=== PATIENT | male | born 1950 | race Two or more races ===

== ENCOUNTER 2019-06-21 22:54 | Inpatient (IN) | payer MEDICARE, OTHER ==
[~2019-06-21] VITALS: Ht 167.6 cm; Wt 94.8 kg
[2019-06-21] MEDS ORDERED: METHYLPREDNISOLONE SOD SUCC 125 MG/2 ML VIAL IV STA (23:04)
[2019-06-21] MEDS ORDERED: ALBUTEROL (0.083%) 2.5MG/3ML NEB HHN STA (23:04)
[2019-06-21] MEDS ORDERED: ONDANSETRON HCL 4MG/2ML INJ IV STA (23:04)
[2019-06-21] MEDS ORDERED: IPRATROPIUM BROMIDE (0.02%) 0.5MG/2.5ML NEB HHN STA (23:04)
[2019-06-21 23:33] LABS: BG BASE EXCESS 1.7 mmol/L (-2.0-2.0); BG BILEVEL POS AIRWAY PRESSURE 15/5; BG CARBOXYHEMOGLOBIN 0.4 % (0.5-1.5); BG DEOXYHEMOGLOBIN 1.2 % (0.0-5.0); BG FRACTION INSPIRED OXYGEN 50; BG HCO3 ACT 25.7 mmol/L (22.0-26.0); BG METHEMOGLOBIN 0.4 % (0.0-1.5); BG OXYGEN SATURATION 98.8 % (92.0-98.5); BG PH 7.448 (7.350-7.450); BG PO2 161.3 mmHg (75.0-100.0); BG SAMPLE SITE LEFT RADIAL; BG VENT MODE MASK - BIPAP; BG VENT RATE 16 set
[2019-06-21 23:35] LABS: HEMATOCRIT. 32.4 % (42.0-52.0); HEMOGLOBIN. 10.5 g/dL (14.0-18.0); MEAN CORPUSCULAR HEMOGLOBIN 30.4 pg (28.0-32.0); MEAN CORPUSCULAR VOLUME 93.7 fL (80.0-94.0); MEAN PLATELET VOLUME 8.3 fl (7.4-10.4); PLATELET 214 x1000/uL (130-400); RED BLOOD CELL COUNT 3.46 mill/uL (4.7-6.1); RED CELL DISTRIBUTION WIDTH 15.7 % (11.6-14.6)
[2019-06-21 23:44] LABS: CHLORIDE 112 mEq/L (98-107)
[2019-06-22] VITALS (9 sets, daily range): BP systolic 114–146; BP diastolic 32–94
[2019-06-22 03:48] LABS: PLATELET ESTIMATE NORMAL
[2019-06-22] MEDS ORDERED: IPRATROPIUM/ALBUTEROL 0.5-3(2.5)MG/3ML NEB HHN PRN (05:15)
[2019-06-22] MEDS ORDERED: POTASSIUM CHLORIDE 20MEQ TABLET SR PO SCH (05:33)
[2019-06-22] MEDS: METHYLPREDNISOLONE SOD SUCC 40 MG/ML VIAL IV SCH ×2 (06:28→13:47)
[2019-06-22] MEDS: PANTOPRAZOLE 40MG DR TABLET PO SCH (06:29)
[2019-06-22] MEDS ORDERED: MONT10TA21 PO (08:20)
[2019-06-22] MEDS: ENOXAPARIN 40MG/0.4ML SYR SUBCUT SCH (08:38)
[2019-06-22 09:47] LABS: HEMATOCRIT. 33.7 % (42.0-52.0); HEMOGLOBIN. 10.8 g/dL (14.0-18.0); MEAN CORPUSCULAR HEMOGLOBIN 30.3 pg (28.0-32.0); MEAN CORPUSCULAR VOLUME 94.8 fL (80.0-94.0); MEAN PLATELET VOLUME 8.9 fl (7.4-10.4); PLATELET 210 x1000/uL (130-400); RED BLOOD CELL COUNT 3.56 mill/uL (4.7-6.1); RED CELL DISTRIBUTION WIDTH 15.8 % (11.6-14.6)
[2019-06-22 10:03] LABS: CHLORIDE 108 mEq/L (98-107)
[2019-06-22 10:11] LABS: LDL CHOLESTEROL 84 mg/dL (5-100)
[2019-06-22 10:12] LABS: HDL CHOLESTEROL 41 mg/dL (40-59)
[2019-06-22] MEDS: LOSARTAN POTASSIUM 50 MG TABLET PO SCH (10:28)
[2019-06-22] MEDS: POTASSIUM CHLORIDE 20MEQ TABLET SR PO SCH (10:28)
[2019-06-22] MEDS ORDERED: CARSR60 PO (12:38)
[2019-06-22] MEDS ORDERED: ATOR-2 MT (12:38)
[2019-06-22] MEDS ORDERED: MOME13HF INH (12:38)
[2019-06-22] MEDS ORDERED: METO-411 PO (12:38)
[2019-06-22] MEDS ORDERED: HYDR-4135 MT (12:38)
[2019-06-22] MEDS ORDERED: APIX5TAB MT (12:38)
[2019-06-22] MEDS ORDERED: ISOS10TA2 MT (12:38)
[2019-06-22] MEDS ORDERED: TIOT18CA3 INH (12:38)
[2019-06-22] MEDS ORDERED: FURO40TA5 MT (12:38)
[2019-06-22 12:53] LABS: TOTAL IRON BINDING CAPACITY 180 ug/dL (250-450)
[2019-06-22 14:03] LABS: PLATELET ESTIMATE NORMAL
[2019-06-22] MEDS: FUROSEMIDE 40MG/4ML VIAL IVP SCH (17:09)
[2019-06-22] MEDS ORDERED: INSULIN LISPRO 100 UNITS/ML SUBCUT SCH (17:20)
[2019-06-22] MEDS: BLOOD SUGAR DIAGNOSTIC STRIP TEST SCH ×2 (17:30→21:05)
[2019-06-22] MEDS: INSULIN LISPRO 100 UNITS/ML SUBCUT SCH ×2 (17:30→20:59)
[2019-06-22] MEDS ORDERED: DEXTROSE 50% WATER 50ML SYRINGE IV PRN (17:30)
[2019-06-22] MEDS: IPRATROPIUM/ALBUTEROL 0.5-3(2.5)MG/3ML NEB HHN SCH (20:12)
[2019-06-22] MEDS: BUDESONIDE 0.5MG/2ML NEB HHN SCH (20:12)
[2019-06-22] MEDS: AMLODIPINE 5MG TABLET PO SCH (20:53)
[2019-06-23] VITALS (12 sets, daily range): BP systolic 91–172; BP diastolic 59–97
[2019-06-23] MEDS: IPRATROPIUM/ALBUTEROL 0.5-3(2.5)MG/3ML NEB HHN SCH ×2 (02:11→10:40)
[2019-06-23 06:38] LABS: CLARITY URINE CLEAR (CLEAR); COLOR URINE YELLOW (YELLOW); KETONES URINE TRACE (NEGATIVE); LEUKOCYTE ESTERASE URINE NEGATIVE (NEGATIVE); NITRITE URINE NEGATIVE (NEGATIVE); OCCULT BLOOD URINE NEGATIVE (NEGATIVE); PROTEIN URINE TRACE (NEGATIVE); SPECIFIC GRAVITY URINE 1.016 (1.005-1.030); UROBILINOGEN URINE 0.2 E.U./dL (0.2-1.0)
[2019-06-23] MEDS: PANTOPRAZOLE 40MG DR TABLET PO SCH (06:52)
[2019-06-23] MEDS: BLOOD SUGAR DIAGNOSTIC STRIP TEST SCH ×4 (06:57→20:16)
[2019-06-23 07:01] LABS: *BENZODIAZEPINES SCREEN URINE NEGATIVE (NEGATIVE); *COCAINE SCREEN URINE NEGATIVE (NEGATIVE); CANNABINOID URINE SCREEN NEGATIVE (NEGATIVE); METHADONE URINE SCREEN NEGATIVE (NEGATIVE); OPIATES URINE SCREEN NEGATIVE (NEGATIVE); PHENCYCLIDINE URINE SCREEN NEGATIVE (NEGATIVE)
[2019-06-23 07:03] LABS: *AMPHETAMINES SCREEN URINE NEGATIVE (NEGATIVE); *BARBITURATES SCREEN URINE NEGATIVE (NEGATIVE)
[2019-06-23] MEDS ORDERED: DILTIAZEM HCL 5MG/ML 5ML VIAL IV NR ×2 (07:30→13:45)
[2019-06-23] MEDS: INSULIN LISPRO 100 UNITS/ML SUBCUT SCH ×4 (07:48→20:42)
[2019-06-23] MEDS: FUROSEMIDE 40MG/4ML VIAL IVP SCH ×2 (07:53→15:18)
[2019-06-23] MEDS ORDERED: DILTIAZEM HCL 125 MG in DEXT 5% WATER 100 ML IV SCH (08:00)
[2019-06-23] MEDS: AMLODIPINE 5MG TABLET PO SCH (08:31)
[2019-06-23] MEDS: LOSARTAN POTASSIUM 50 MG TABLET PO SCH (08:31)
[2019-06-23] MEDS: PREDNISONE 20MG TABLET PO SCH ×2 (08:31→17:41)
[2019-06-23] MEDS: POTASSIUM CHLORIDE 20MEQ TABLET SR PO SCH (08:31)
[2019-06-23] MEDS: ENOXAPARIN 40MG/0.4ML SYR SUBCUT SCH (08:32)
[2019-06-23] MEDS: BUDESONIDE 0.5MG/2ML NEB HHN SCH ×2 (10:39→20:36)
[2019-06-23] MEDS: DILTIAZEM HCL 60MG TABLET PO SCH ×2 (15:20→22:08)
[2019-06-23] MEDS: DILTIAZEM HCL 125 MG in DEXT 5% WATER 100 ML IV SCH ×2 (15:27→22:50)
[2019-06-23] MEDS: IPRATROPIUM BROMIDE (0.02%) 0.5MG/2.5ML NEB HHN SCH ×2 (16:10→20:36)
[2019-06-23] MEDS: DIGOXIN 500MCG/2ML AMP IV SCH (17:40)
[2019-06-23] MEDS: APIXABAN 5 MG TABLET PO SCH (17:41)
[2019-06-24] VITALS (12 sets, daily range): BP systolic 107–149; BP diastolic 58–97
[2019-06-24] MEDS: IPRATROPIUM BROMIDE (0.02%) 0.5MG/2.5ML NEB HHN SCH ×3 (01:47→20:47)
[2019-06-24] MEDS: BLOOD SUGAR DIAGNOSTIC STRIP TEST SCH ×4 (06:16→21:52)
[2019-06-24] MEDS: PANTOPRAZOLE 40MG DR TABLET PO SCH (06:17)
[2019-06-24] MEDS: DILTIAZEM HCL 60MG TABLET PO SCH (06:17)
[2019-06-24 07:28] LABS: HEMATOCRIT. 33.5 % (42.0-52.0); HEMOGLOBIN. 10.6 g/dL (14.0-18.0); MEAN CORPUSCULAR HEMOGLOBIN 30.4 pg (28.0-32.0); MEAN CORPUSCULAR VOLUME 96.1 fL (80.0-94.0); MEAN PLATELET VOLUME 9.6 fl (7.4-10.4); PLATELET 235 x1000/uL (130-400); RED BLOOD CELL COUNT 3.49 mill/uL (4.7-6.1); RED CELL DISTRIBUTION WIDTH 15.7 % (11.6-14.6)
[2019-06-24] MEDS: INSULIN LISPRO 100 UNITS/ML SUBCUT SCH ×4 (07:43→21:59)
[2019-06-24] MEDS: LOSARTAN POTASSIUM 50 MG TABLET PO SCH (08:25)
[2019-06-24] MEDS: PREDNISONE 20MG TABLET PO SCH ×2 (08:26→16:40)
[2019-06-24] MEDS: POTASSIUM CHLORIDE 20MEQ TABLET SR PO SCH (08:26)
[2019-06-24] MEDS: APIXABAN 5 MG TABLET PO SCH ×2 (08:26→16:40)
[2019-06-24] MEDS: FUROSEMIDE 40MG/4ML VIAL IVP SCH (08:27)
[2019-06-24] MEDS: BUDESONIDE 0.5MG/2ML NEB HHN SCH ×2 (10:10→20:47)
[2019-06-24] MEDS: DILTIAZEM HCL 90MG TABLET PO SCH ×2 (13:25→21:52)
[2019-06-24 14:21] LABS: PLATELET ESTIMATE NORMAL
[2019-06-24] MEDS: DIGOXIN 500MCG/2ML AMP IV SCH (19:05)
[2019-06-25] VITALS (10 sets, daily range): BP systolic 125–147; BP diastolic 48–94
[2019-06-25] MEDS: IPRATROPIUM BROMIDE (0.02%) 0.5MG/2.5ML NEB HHN SCH ×3 (00:31→14:15)
[2019-06-25] MEDS: DILTIAZEM HCL 90MG TABLET PO SCH ×2 (06:23→13:11)
[2019-06-25] MEDS: BLOOD SUGAR DIAGNOSTIC STRIP TEST SCH ×2 (06:23→12:18)
[2019-06-25] MEDS: PANTOPRAZOLE 40MG DR TABLET PO SCH (06:23)
[2019-06-25] MEDS: INSULIN LISPRO 100 UNITS/ML SUBCUT SCH ×2 (06:30→13:14)
[2019-06-25] MEDS: LOSARTAN POTASSIUM 50 MG TABLET PO SCH (08:40)
[2019-06-25] MEDS: APIXABAN 5 MG TABLET PO SCH (08:41)
[2019-06-25] MEDS: PREDNISONE 20MG TABLET PO SCH (08:41)
[2019-06-25 09:56] LABS: HEMATOCRIT. 34.9 % (42.0-52.0); HEMOGLOBIN. 11.1 g/dL (14.0-18.0); MEAN CORPUSCULAR HEMOGLOBIN 30.3 pg (28.0-32.0); MEAN CORPUSCULAR VOLUME 95.5 fL (80.0-94.0); MEAN PLATELET VOLUME 9.5 fl (7.4-10.4); PLATELET 263 x1000/uL (130-400); RED BLOOD CELL COUNT 3.65 mill/uL (4.7-6.1); RED CELL DISTRIBUTION WIDTH 15.5 % (11.6-14.6)
[2019-06-25] MEDS: BUDESONIDE 0.5MG/2ML NEB HHN SCH (10:53)
[2019-06-25] MEDS ORDERED: P20 PO (13:42)
[2019-06-25] MEDS ORDERED: LOSA50TA3 PO (13:42)
[2019-06-25] MEDS ORDERED: APIX5TAB PO (13:42)
[2019-06-25] MEDS ORDERED: DILT90TA2 PO (13:42)
[2019-06-25] MEDS ORDERED: PANT40TA4 PO (13:42)
[2019-06-25 18:25] LABS: PLATELET ESTIMATE NORMAL
== END 2019-06-25 17:50 | disposition home or self-care (01) | DRG 291 ==
LOC: ER 22:54 → 3WST 06-22 00:26 → EDBEDREQSVC 06-22 00:31 → EDBEDREQTM 06-22 00:31 → EDBEDREQDT 06-22 00:31 → EDBEDREQ 06-22 00:31 → ENRESERV 06-22 01:09
PROVIDERS: ADMIT Internal Medicine; ATTEND Internal Medicine
PROC: 5A09357 Assistance with Respiratory Ventilation, Less than 24 Consecutive Hours, Continuous Positive Airway Pressure (ICD-10-PCS; principal; 2019-06-21)
DX: I13.0 Hypertensive heart and chronic kidney disease with heart failure and stage 1 through stage 4 chronic kidney disease, or unspecified chronic kidney disease (principal); J96.00 Acute respiratory failure, unspecified whether with hypoxia or hypercapnia; I50.23 Acute on chronic systolic (congestive) heart failure; N17.9 Acute kidney failure, unspecified; J44.1 Chronic obstructive pulmonary disease with (acute) exacerbation; D72.821 Monocytosis (symptomatic); E11.65 Type 2 diabetes mellitus with hyperglycemia; E87.6 Hypokalemia; E11.22 Type 2 diabetes mellitus with diabetic chronic kidney disease; D64.9 Anemia, unspecified; R80.9 Proteinuria, unspecified; R74.0 Nonspecific elevation of levels of transaminase and lactic acid dehydrogenase [LDH]; I48.0 Paroxysmal atrial fibrillation; N18.9 Chronic kidney disease, unspecified; Z79.01 Long term (current) use of anticoagulants; Z79.51 Long term (current) use of inhaled steroids; Z79.84 Long term (current) use of oral hypoglycemic drugs; Z87.891 Personal history of nicotine dependence; Z88.5 Allergy status to narcotic agent; Z91.013 Allergy to seafood; Z79.899 Other long term (current) drug therapy
CPT/HCPCS: 36415; 36600; 71045; 76770; 80048; 80061; 80305; 81003; 82375; 82805; 82947; 82962; 83036; 83540; 83550; 83605; 83735; 83880; 84145; 84443; 84484; 93005; 93306; 93970; 94640; 94660; 99291; J1160; J1650; J1815; J1940; J2405; J2920; J2930; J3490; J7060; J7512; J7611; J7620; J7626

== ENCOUNTER 2019-07-31 10:22 | Inpatient (IN) | payer MEDICARE ==
[~2019-07-31] VITALS: Ht 167.6 cm; Wt 91.6 kg
[~2019-07-31 10:22] MED LIST: APIX5TAB MT; APIX5TAB PO; ASPI-1393 MT; ATOR-2 MT; CARV25TA47 MT; DILT90TA2 PO; FURO40TA5 MT; HYDR-4135 MT; ISOS5TAB4 MT; LOSA50TA3 PO; MOME13HF INH; MONT10TA21 PO; P20 PO; PANT40TA4 PO; TIOT18CA3 INH
[2019-07-31] MEDS ORDERED: DILTIAZEM HCL 125 MG in DEXT 5% WATER 100 ML IV ONE (11:45)
[2019-07-31] MEDS ORDERED: DILTIAZEM HCL 5MG/ML 5ML VIAL IV ONE (11:45)
[2019-07-31 11:57] LABS: CHLORIDE 109 mEq/L (98-107)
[2019-07-31 11:59] LABS: BASOPHILS % 0.6 % (0.0-2.0); HEMATOCRIT. 36.3 % (42.0-52.0); HEMOGLOBIN. 11.7 g/dL (14.0-18.0); MEAN CORPUSCULAR HEMOGLOBIN 30.8 pg (28.0-32.0); MEAN CORPUSCULAR VOLUME 95.7 fL (80.0-94.0); MEAN PLATELET VOLUME 9.4 fl (7.4-10.4); MONOCYTES % 9.5 % (2.0-8.0); NEUTROPHILS % 76.9 % (40.0-76.0); PLATELET 306 x1000/uL (130-400); RED BLOOD CELL COUNT 3.79 mill/uL (4.7-6.1); RED CELL DISTRIBUTION WIDTH 17.1 % (11.6-14.6)
[2019-07-31] MEDS ORDERED: ASPIRIN 81MG TABLET PO ONE (13:30)
[2019-07-31] MEDS ORDERED: IPRATROPIUM BROMIDE (0.02%) 0.5MG/2.5ML NEB HHN SCH (14:00)
[2019-07-31] MEDS ORDERED: DEXTROSE 50% WATER 50ML SYRINGE IV PRN (14:00)
[2019-07-31] MEDS ORDERED: ONDANSETRON HCL 4MG/2ML INJ IV PRN ×2 (14:00→19:30)
[2019-07-31] MEDS ORDERED: BUDESONIDE 0.5MG/2ML NEB HHN SCH (14:00)
[2019-07-31] MEDS ORDERED: FUROSEMIDE 40MG/4ML VIAL IVP SCH (14:00)
[2019-07-31] MEDS ORDERED: BLOOD SUGAR DIAGNOSTIC STRIP TEST SCH (17:00)
[2019-07-31 18:00] VITALS: BP 151/111
[2019-07-31] MEDS ORDERED: INSULIN LISPRO 100 UNITS/ML SUBCUT SCH (18:20)
[2019-07-31 18:41] VITALS: BP 151/111
[2019-07-31] MEDS ORDERED: LORAZEPAM 2MG/ML CPJ IV PRN (19:30)
[2019-07-31] MEDS ORDERED: CLONIDINE 0.1MG TABLET PO PRN (19:30)
[2019-07-31] MEDS ORDERED: MORPHINE SULFATE 2 MG/ML CPJ (NOT FOR IM USE) IV PRN (19:30)
[2019-07-31] MEDS ORDERED: HYDROCODONE/ACETAMINOPHEN 5/325MG TABLET PO PRN (19:30)
[2019-07-31] MEDS ORDERED: ENOXAPARIN 40MG/0.4ML SYR SUBCUT SCH (19:30)
[2019-07-31 20:00] VITALS: BP 169/99
[2019-07-31] MEDS: INSULIN LISPRO 100 UNITS/ML SUBCUT SCH (21:00)
[2019-07-31] MEDS: FUROSEMIDE 40MG/4ML VIAL IVP SCH (21:02)
[2019-07-31] MEDS: APIXABAN 5 MG TABLET PO SCH (21:02)
[2019-07-31] MEDS: GUAIFENESIN 600MG ER TABLET PO SCH (21:03)
[2019-07-31] MEDS: BLOOD SUGAR DIAGNOSTIC STRIP TEST SCH (21:35)
[2019-07-31] MEDS: CLONIDINE 0.1MG TABLET PO PRN (21:43)
[2019-07-31 22:00] VITALS: BP 149/96
[2019-08-01] VITALS (22 sets, daily range): BP systolic 134–175; BP diastolic 77–113
[2019-08-01] MEDS: DILTIAZEM HCL 90MG TABLET PO SCH ×4 (00:17→18:28)
[2019-08-01 00:34] LABS: CREATINE KINASE MB FRACTION 3.4 ng/mL (0.5-3.6)
[2019-08-01] MEDS: IPRATROPIUM BROMIDE (0.02%) 0.5MG/2.5ML NEB HHN SCH ×5 (04:51→21:37)
[2019-08-01] MEDS: BLOOD SUGAR DIAGNOSTIC STRIP TEST SCH ×4 (06:46→21:52)
[2019-08-01] MEDS: INSULIN LISPRO 100 UNITS/ML SUBCUT SCH ×4 (07:20→21:00)
[2019-08-01] MEDS: APIXABAN 5 MG TABLET PO SCH ×2 (07:48→17:17)
[2019-08-01] MEDS: FUROSEMIDE 40MG/4ML VIAL IVP SCH (07:48)
[2019-08-01] MEDS: FOLIC ACID 1MG TABLET PO SCH (07:48)
[2019-08-01] MEDS: ASPIRIN 81MG EC TABLET PO SCH (07:48)
[2019-08-01 07:49] LABS: BASOPHILS % 0.4 % (0.0-2.0); EOSINOPHILS % 0.6 % (0.0-5.0); HEMATOCRIT. 39.7 % (42.0-52.0); HEMOGLOBIN. 12.5 g/dL (14.0-18.0); LYMPHOCYTES % 14.5 % (20.0-50.0); MEAN CORPUSCULAR HEMOGLOBIN 30.1 pg (28.0-32.0); MEAN CORPUSCULAR VOLUME 95.6 fL (80.0-94.0); MEAN PLATELET VOLUME 9.3 fl (7.4-10.4); MONOCYTES % 10.9 % (2.0-8.0); NEUTROPHILS % 73.6 % (40.0-76.0); PLATELET 280 x1000/uL (130-400); RED BLOOD CELL COUNT 4.15 mill/uL (4.7-6.1); RED CELL DISTRIBUTION WIDTH 16.9 % (11.6-14.6)
[2019-08-01] MEDS: GUAIFENESIN 600MG ER TABLET PO SCH ×2 (07:49→21:25)
[2019-08-01] MEDS: ACETAMINOPHEN 325MG TABLET PO PRN ×2 (07:49→17:17)
[2019-08-01 08:41] LABS: CHLORIDE 107 mEq/L (98-107)
[2019-08-01] MEDS: BUDESONIDE 0.5MG/2ML NEB HHN SCH ×2 (08:47→21:37)
[2019-08-01 08:51] LABS: CREATINE KINASE 112 IU/L (39-308)
[2019-08-01 08:53] LABS: CREATINE KINASE MB FRACTION 3.1 ng/mL (0.5-3.6)
[2019-08-01] MEDS: CLONIDINE 0.1MG TABLET PO PRN ×2 (09:23→17:17)
[2019-08-01] MEDS: LOSARTAN POTASSIUM 100 MG TABLET PO SCH (11:55)
[2019-08-01] MEDS: COLCHICINE 0.6MG TABLET PO SCH (11:55)
[2019-08-01] MEDS: TRAMADOL 50MG TABLET PO PRN (17:24)
[2019-08-02] VITALS (9 sets, daily range): BP systolic 145–176; BP diastolic 60–113
[2019-08-02] MEDS: DILTIAZEM HCL 90MG TABLET PO SCH ×3 (00:17→12:27)
[2019-08-02] MEDS: IPRATROPIUM BROMIDE (0.02%) 0.5MG/2.5ML NEB HHN SCH ×5 (01:00→16:00)
[2019-08-02] MEDS: BLOOD SUGAR DIAGNOSTIC STRIP TEST SCH ×2 (06:51→12:20)
[2019-08-02 07:14] LABS: HEMATOCRIT. 34.6 % (42.0-52.0); HEMOGLOBIN. 11.1 g/dL (14.0-18.0); MEAN CORPUSCULAR HEMOGLOBIN 30.3 pg (28.0-32.0); MEAN CORPUSCULAR VOLUME 94.5 fL (80.0-94.0); MEAN PLATELET VOLUME 9.7 fl (7.4-10.4); PLATELET 226 x1000/uL (130-400); RED BLOOD CELL COUNT 3.66 mill/uL (4.7-6.1); RED CELL DISTRIBUTION WIDTH 17.1 % (11.6-14.6)
[2019-08-02] MEDS: INSULIN LISPRO 100 UNITS/ML SUBCUT SCH ×2 (07:20→12:20)
[2019-08-02 07:50] LABS: CHLORIDE 105 mEq/L (98-107)
[2019-08-02] MEDS: BUDESONIDE 0.5MG/2ML NEB HHN SCH (08:28)
[2019-08-02] MEDS: LOSARTAN POTASSIUM 100 MG TABLET PO SCH (09:07)
[2019-08-02] MEDS: ASPIRIN 81MG EC TABLET PO SCH (09:07)
[2019-08-02] MEDS: FOLIC ACID 1MG TABLET PO SCH (09:07)
[2019-08-02] MEDS: GUAIFENESIN 600MG ER TABLET PO SCH (09:07)
[2019-08-02] MEDS: APIXABAN 5 MG TABLET PO SCH (09:07)
[2019-08-02] MEDS: FUROSEMIDE 40MG/4ML VIAL IVP SCH (09:08)
[2019-08-02] MEDS: COLCHICINE 0.6MG TABLET PO SCH (09:08)
[2019-08-02 11:04] LABS: PLATELET ESTIMATE NORMAL
[2019-08-02] MEDS: TRAMADOL 50MG TABLET PO PRN (12:27)
[2019-08-02] MEDS: CLONIDINE 0.1MG TABLET PO PRN (12:27)
== END 2019-08-02 18:44 | disposition home or self-care (01) | DRG 291 ==
LOC: ER 10:22 → 3WST 13:42 → ENRESERV 16:04 → CANRESERV 16:04 → EDBEDREQSVC 16:22 → CANRESERV 16:23 → ENRESERV 16:23
PROVIDERS: ADMIT Internal Medicine Nephrology; ATTEND Internal Medicine Nephrology
DX: I13.0 Hypertensive heart and chronic kidney disease with heart failure and stage 1 through stage 4 chronic kidney disease, or unspecified chronic kidney disease (principal); E43 Unspecified severe protein-calorie malnutrition; I50.23 Acute on chronic systolic (congestive) heart failure; J96.20 Acute and chronic respiratory failure, unspecified whether with hypoxia or hypercapnia; E87.0 Hyperosmolality and hypernatremia; I48.20 Chronic atrial fibrillation, unspecified; E11.22 Type 2 diabetes mellitus with diabetic chronic kidney disease; N18.9 Chronic kidney disease, unspecified; D64.9 Anemia, unspecified; E11.9 Type 2 diabetes mellitus without complications; E66.9 Obesity, unspecified; E78.00 Pure hypercholesterolemia, unspecified; E78.5 Hyperlipidemia, unspecified; E87.8 Other disorders of electrolyte and fluid balance, not elsewhere classified; J44.9 Chronic obstructive pulmonary disease, unspecified; M10.9 Gout, unspecified; Z79.01 Long term (current) use of anticoagulants; Z99.81 Dependence on supplemental oxygen; Z68.32 Body mass index [BMI] 32.0-32.9, adult; Z88.6 Allergy status to analgesic agent; Z91.013 Allergy to seafood; Z79.82 Long term (current) use of aspirin; Z79.899 Other long term (current) drug therapy; Z71.3 Dietary counseling and surveillance
CPT/HCPCS: 36415; 71045; 80048; 82550; 82553; 82962; 83880; 84484; 84550; 93005; 94640; 99285; J1815; J1940; J3490; J7060; J7626

== ENCOUNTER 2019-09-30 10:05 | Inpatient (IN) | payer MEDICARE, OTHER ==
[~2019-09-30] VITALS: Ht 167.6 cm; Wt 93.0 kg
[~2019-09-30 10:05] MED LIST changes: -APIX5TAB MT; -ASPI-1393 MT; +ASPI-1497 MT; -P20 PO
[2019-09-30] MEDS ORDERED: DILTIAZEM HCL 125 MG in DEXT 5% WATER 100 ML IV ONE ×2 (10:45→21:30)
[2019-09-30] MEDS ORDERED: DILTIAZEM HCL 5MG/ML 5ML VIAL IV ONE (10:45)
[2019-09-30 11:30] LABS: BASOPHILS % 0.4 % (0.0-2.0); EOSINOPHILS % 3.2 % (0.0-5.0); HEMATOCRIT. 34.3 % (42.0-52.0); HEMOGLOBIN. 11.2 g/dL (14.0-18.0); LYMPHOCYTES % 13.1 % (20.0-50.0); MEAN CORPUSCULAR HEMOGLOBIN 30.8 pg (28.0-32.0); MEAN PLATELET VOLUME 8.3 fl (7.4-10.4); MONOCYTES % 7.1 % (2.0-8.0); NEUTROPHILS % 76.2 % (40.0-76.0); PLATELET 388 x1000/uL (130-400); RED BLOOD CELL COUNT 3.65 mill/uL (4.7-6.1); RED CELL DISTRIBUTION WIDTH 16.2 % (11.6-14.6)
[2019-09-30 11:36] LABS: CHLORIDE 108 mEq/L (98-107)
[2019-09-30] MEDS ORDERED: SODIUM CHLORIDE 0.9% 500 ML IV ONE (11:45)
[2019-09-30] MEDS ORDERED: IPRATROPIUM BROMIDE (0.02%) 0.5MG/2.5ML NEB HHN STA (12:01)
[2019-09-30] MEDS ORDERED: ALBUTEROL (0.083%) 2.5MG/3ML NEB HHN STA (12:01)
[2019-09-30] MEDS ORDERED: METOPROLOL TARTRATE 25MG TABLET PO NR (16:05)
[2019-09-30] MEDS ORDERED: APIXABAN 2.5 MG TABLET PO NR (16:07)
[2019-09-30] MEDS ORDERED: POTASSIUM CHLORIDE INJ 40 MEQ in DEXT 5% WATER 250 ML IV NR (16:30)
[2019-09-30] MEDS ORDERED: DIPHENHYDRAMINE 50MG/ML VIAL IV PRN (17:15)
[2019-09-30] MEDS ORDERED: NA PHOS,M-B/NA PHOS,DI-BA ENEMA 118ML PR PRN (17:15)
[2019-09-30] MEDS ORDERED: ONDANSETRON HCL 4MG/2ML INJ IV PRN (17:15)
[2019-09-30] MEDS ORDERED: DOCUSATE SODIUM 100MG CAPSULE PO PRN (17:15)
[2019-09-30] MEDS ORDERED: MORPHINE SULFATE 2 MG/ML CPJ (NOT FOR IM USE) IV PRN (17:15)
[2019-09-30] MEDS ORDERED: MAGNESIUM/ALUMINUM HYDROXIDE/SIMETHICONE 30ML UDC PO PRN (17:15)
[2019-09-30] MEDS ORDERED: GUAIFENESIN 200MG/10ML SUGAR FREE UDC PO PRN (17:15)
[2019-09-30] MEDS ORDERED: ENOXAPARIN 40MG/0.4ML SYR SUBCUT SCH (17:15)
[2019-09-30] MEDS ORDERED: LORAZEPAM 2MG/ML CPJ IV PRN (17:15)
[2019-09-30] MEDS ORDERED: DILTIAZEM HCL 125 MG in DEXT 5% WATER 100 ML IV NR (21:45)
[2019-10-01 03:44] LABS: BASOPHILS % 0.3 % (0.0-2.0); EOSINOPHILS % 3.4 % (0.0-5.0); HEMOGLOBIN. 9.8 g/dL (14.0-18.0); LYMPHOCYTES % 14.2 % (20.0-50.0); MEAN CORPUSCULAR HEMOGLOBIN 30.9 pg (28.0-32.0); MEAN CORPUSCULAR VOLUME 94.5 fL (80.0-94.0); MEAN PLATELET VOLUME 7.6 fl (7.4-10.4); NEUTROPHILS % 71.1 % (40.0-76.0); PLATELET 334 x1000/uL (130-400); RED BLOOD CELL COUNT 3.17 mill/uL (4.7-6.1); RED CELL DISTRIBUTION WIDTH 16.3 % (11.6-14.6)
[2019-10-01 03:52] LABS: CHLORIDE 111 mEq/L (98-107)
[2019-10-01 03:59] LABS: LDL CHOLESTEROL 80 mg/dL (5-100)
[2019-10-01 04:00] LABS: HDL CHOLESTEROL 41 mg/dL (40-59)
[2019-10-01 04:01] LABS: T4 FREE 1.09 ng/dL (0.76-1.46)
[2019-10-01] MEDS: ACETAMINOPHEN 325MG TABLET PO PRN (06:56)
[2019-10-01 08:12] LABS: CREATINE KINASE 71 IU/L (39-308)
[2019-10-01] MEDS ORDERED: APIXABAN 2.5 MG TABLET PO NR (09:30)
[2019-10-01] MEDS ORDERED: FUROSEMIDE 40MG/4ML VIAL IV NR (09:30)
[2019-10-01] MEDS ORDERED: ASPIRIN 81MG EC TABLET PO NR (09:30)
[2019-10-01] MEDS: METOPROLOL TARTRATE 25MG TABLET PO SCH ×2 (11:26→20:35)
[2019-10-01 11:56] VITALS: BP 151/81
[2019-10-01 16:26] VITALS: BP 158/86
[2019-10-01] MEDS: APIXABAN 2.5 MG TABLET PO SCH (17:29)
[2019-10-01 18:19] LABS: CLARITY URINE CLEAR (CLEAR); COLOR URINE YELLOW (YELLOW); KETONES URINE NEGATIVE (NEGATIVE); LEUKOCYTE ESTERASE URINE NEGATIVE (NEGATIVE); NITRITE URINE NEGATIVE (NEGATIVE); OCCULT BLOOD URINE NEGATIVE (NEGATIVE); PROTEIN URINE NEGATIVE (NEGATIVE); SPECIFIC GRAVITY URINE 1.008 (1.005-1.030); UROBILINOGEN URINE 0.2 E.U./dL (0.2-1.0)
[2019-10-01 18:22] LABS: *AMPHETAMINES SCREEN URINE NEGATIVE (NEGATIVE); *BARBITURATES SCREEN URINE NEGATIVE (NEGATIVE); *BENZODIAZEPINES SCREEN URINE NEGATIVE (NEGATIVE); *COCAINE SCREEN URINE NEGATIVE (NEGATIVE); METHADONE URINE SCREEN NEGATIVE (NEGATIVE); OPIATES URINE SCREEN NEGATIVE (NEGATIVE)
[2019-10-01 18:23] LABS: CANNABINOID URINE SCREEN NEGATIVE (NEGATIVE); PHENCYCLIDINE URINE SCREEN NEGATIVE (NEGATIVE)
[2019-10-01 20:00] VITALS: BP 174/106
[2019-10-01] MEDS: CLONIDINE 0.1MG TABLET PO PRN (20:36)
[2019-10-02] VITALS: BP 179/113
[2019-10-02] MEDS ORDERED: CLONIDINE 0.1MG TABLET PO NR (00:15)
[2019-10-02 04:00] VITALS: BP 166/104
[2019-10-02] MEDS: ACETAMINOPHEN 325MG TABLET PO PRN ×2 (04:01→16:44)
[2019-10-02] MEDS: CLONIDINE 0.1MG TABLET PO PRN (04:08)
[2019-10-02 06:51] LABS: BASOPHILS % 0.7 % (0.0-2.0); EOSINOPHILS % 3.9 % (0.0-5.0); HEMATOCRIT. 28.7 % (42.0-52.0); HEMOGLOBIN. 9.3 g/dL (14.0-18.0); LYMPHOCYTES % 15.4 % (20.0-50.0); MEAN CORPUSCULAR HEMOGLOBIN 30.8 pg (28.0-32.0); MEAN CORPUSCULAR VOLUME 95.4 fL (80.0-94.0); PLATELET 322 x1000/uL (130-400); RED BLOOD CELL COUNT 3.01 mill/uL (4.7-6.1); RED CELL DISTRIBUTION WIDTH 16.3 % (11.6-14.6)
[2019-10-02 07:41] LABS: CHLORIDE 111 mEq/L (98-107)
[2019-10-02 08:00] VITALS: BP 150/91
[2019-10-02] MEDS: ASPIRIN 81MG EC TABLET PO SCH (08:45)
[2019-10-02] MEDS: METOPROLOL TARTRATE 25MG TABLET PO SCH ×2 (08:45→20:56)
[2019-10-02] MEDS: FUROSEMIDE 40MG/4ML VIAL IV SCH (08:45)
[2019-10-02] MEDS: APIXABAN 2.5 MG TABLET PO SCH (08:48)
[2019-10-02] MEDS: AMLODIPINE 2.5MG TABLET PO SCH ×2 (08:51→20:56)
[2019-10-02] MEDS ORDERED: REGADENOSON 0.4 MG/5 ML IV ONE ×2 (11:15→13:00)
[2019-10-02 12:00] VITALS: BP 152/95
[2019-10-02 16:00] VITALS: BP 134/92
[2019-10-02] MEDS: APIXABAN 5 MG TABLET PO SCH (16:38)
[2019-10-02 20:00] VITALS: BP 148/90
[2019-10-02] MEDS: AMIODARONE HCL 200 MG TABLET PO SCH (20:57)
[2019-10-03] VITALS: BP 145/93
[2019-10-03 04:00] VITALS: BP 139/93
[2019-10-03 06:14] LABS: BASOPHILS % 0.5 % (0.0-2.0); EOSINOPHILS % 4.1 % (0.0-5.0); HEMATOCRIT. 30.1 % (42.0-52.0); HEMOGLOBIN. 9.8 g/dL (14.0-18.0); LYMPHOCYTES % 17.4 % (20.0-50.0); MEAN CORPUSCULAR HEMOGLOBIN 31.2 pg (28.0-32.0); MEAN CORPUSCULAR VOLUME 95.7 fL (80.0-94.0); MEAN PLATELET VOLUME 8.6 fl (7.4-10.4); MONOCYTES % 13.4 % (2.0-8.0); NEUTROPHILS % 64.6 % (40.0-76.0); PLATELET 329 x1000/uL (130-400); RED BLOOD CELL COUNT 3.15 mill/uL (4.7-6.1); RED CELL DISTRIBUTION WIDTH 16.2 % (11.6-14.6)
[2019-10-03 06:19] LABS: CHLORIDE 108 mEq/L (98-107)
[2019-10-03 08:00] VITALS: BP 154/102
[2019-10-03] MEDS: ASPIRIN 81MG EC TABLET PO SCH (08:04)
[2019-10-03] MEDS: ACETAMINOPHEN 325MG TABLET PO PRN (08:04)
[2019-10-03] MEDS: APIXABAN 5 MG TABLET PO SCH ×2 (08:05→17:20)
[2019-10-03] MEDS: METOPROLOL TARTRATE 25MG TABLET PO SCH ×2 (08:05→21:17)
[2019-10-03] MEDS: AMIODARONE HCL 200 MG TABLET PO SCH ×2 (08:05→21:16)
[2019-10-03] MEDS: AMLODIPINE 2.5MG TABLET PO SCH ×2 (08:05→21:16)
[2019-10-03] MEDS: FUROSEMIDE 40MG/4ML VIAL IV SCH (08:06)
[2019-10-03 12:00] VITALS: BP 137/90
[2019-10-03 16:00] VITALS: BP 149/99
[2019-10-03 20:00] VITALS: BP 139/69
[2019-10-04] VITALS: BP 135/86
[2019-10-04] MEDS: IPRATROPIUM/ALBUTEROL 0.5-3(2.5)MG/3ML NEB NEB PRN ×6 (03:05→23:35)
[2019-10-04 04:00] VITALS: BP 137/78
[2019-10-04 06:45] LABS: CHLORIDE 105 mEq/L (98-107)
[2019-10-04 06:56] LABS: BASOPHILS % 0.5 % (0.0-2.0); EOSINOPHILS % 2.7 % (0.0-5.0); HEMATOCRIT. 28.1 % (42.0-52.0); HEMOGLOBIN. 9.2 g/dL (14.0-18.0); LYMPHOCYTES % 17.4 % (20.0-50.0); MEAN CORPUSCULAR HEMOGLOBIN 31.1 pg (28.0-32.0); MEAN CORPUSCULAR VOLUME 94.9 fL (80.0-94.0); MONOCYTES % 13.5 % (2.0-8.0); NEUTROPHILS % 65.9 % (40.0-76.0); PLATELET 305 x1000/uL (130-400); RED BLOOD CELL COUNT 2.97 mill/uL (4.7-6.1)
[2019-10-04 08:00] VITALS: BP 162/94
[2019-10-04] MEDS: ASPIRIN 81MG EC TABLET PO SCH (08:36)
[2019-10-04] MEDS: FUROSEMIDE 40MG/4ML VIAL IV SCH (08:37)
[2019-10-04] MEDS: AMIODARONE HCL 200 MG TABLET PO SCH ×2 (08:37→20:34)
[2019-10-04] MEDS: APIXABAN 5 MG TABLET PO SCH ×2 (08:37→17:40)
[2019-10-04] MEDS: METOPROLOL TARTRATE 25MG TABLET PO SCH ×2 (08:37→20:35)
[2019-10-04] MEDS: AMLODIPINE 2.5MG TABLET PO SCH ×2 (08:38→20:34)
[2019-10-04 12:00] VITALS: BP 158/92
[2019-10-04 16:00] VITALS: BP 146/84
[2019-10-04 20:00] VITALS: BP 154/94
[2019-10-05] VITALS: BP 160/96
[2019-10-05] MEDS: IPRATROPIUM/ALBUTEROL 0.5-3(2.5)MG/3ML NEB NEB PRN ×4 (02:51→12:22)
[2019-10-05 04:00] VITALS: BP 158/97
[2019-10-05 06:54] LABS: BASOPHILS % 0.7 % (0.0-2.0); EOSINOPHILS % 1.6 % (0.0-5.0); HEMATOCRIT. 28.9 % (42.0-52.0); HEMOGLOBIN. 9.4 g/dL (14.0-18.0); LYMPHOCYTES % 13.6 % (20.0-50.0); MEAN CORPUSCULAR HEMOGLOBIN 30.7 pg (28.0-32.0); MEAN CORPUSCULAR VOLUME 94.5 fL (80.0-94.0); MEAN PLATELET VOLUME 8.8 fl (7.4-10.4); MONOCYTES % 13.3 % (2.0-8.0); NEUTROPHILS % 70.8 % (40.0-76.0); PLATELET 316 x1000/uL (130-400); RED BLOOD CELL COUNT 3.06 mill/uL (4.7-6.1); RED CELL DISTRIBUTION WIDTH 16.1 % (11.6-14.6)
[2019-10-05 06:55] VITALS: BP 147/91
[2019-10-05 08:00] VITALS: BP 150/81
[2019-10-05] MEDS: AMLODIPINE 2.5MG TABLET PO SCH (09:29)
[2019-10-05] MEDS: AMIODARONE HCL 200 MG TABLET PO SCH (09:29)
[2019-10-05] MEDS: ASPIRIN 81MG EC TABLET PO SCH (09:29)
[2019-10-05] MEDS: ACETAMINOPHEN 325MG TABLET PO PRN (09:29)
[2019-10-05] MEDS: APIXABAN 5 MG TABLET PO SCH (09:29)
[2019-10-05] MEDS: METOPROLOL TARTRATE 25MG TABLET PO SCH (09:30)
[2019-10-05] MEDS ORDERED: REGADENOSON 0.4 MG/5 ML IV ONE (10:09)
[2019-10-05 12:00] VITALS: BP 126/72
[2019-10-05] MEDS ORDERED: MAGNESIUM 1 G PREMIX 100 ML IV SCH (13:00)
[2019-10-05 14:33] VITALS: BP 126/72
== END 2019-10-05 15:30 | disposition home or self-care (01) | DRG 280 ==
LOC: EDBD → ER 10:20 → 8WST 14:22 → EDBEDREQ 14:25 → EDBEDREQSVC 15:05 → EDBEDREQ 15:05 → EDBEDREQSVC 22:18 → EDBEDREQTM 22:18 → EDBEDREQSVC 10-01 09:30 → ENRESERV 10-01 09:31
PROVIDERS: ADMIT Internal Medicine; ATTEND Internal Medicine
PROC: 4A02XM4 Measurement of Cardiac Total Activity, External Approach (ICD-10-PCS; principal; 2019-10-05)
PROC: 3E033HZ Introduction of Radioactive Substance into Peripheral Vein, Percutaneous Approach (ICD-10-PCS; 2019-10-05)
DX: I21.4 Non-ST elevation (NSTEMI) myocardial infarction (principal); N17.0 Acute kidney failure with tubular necrosis; J96.00 Acute respiratory failure, unspecified whether with hypoxia or hypercapnia; E43 Unspecified severe protein-calorie malnutrition; I13.0 Hypertensive heart and chronic kidney disease with heart failure and stage 1 through stage 4 chronic kidney disease, or unspecified chronic kidney disease; I42.9 Cardiomyopathy, unspecified; I47.2 Ventricular tachycardia; J44.9 Chronic obstructive pulmonary disease, unspecified; I25.10 Atherosclerotic heart disease of native coronary artery without angina pectoris; E78.5 Hyperlipidemia, unspecified; I50.9 Heart failure, unspecified; E05.90 Thyrotoxicosis, unspecified without thyrotoxic crisis or storm; I48.0 Paroxysmal atrial fibrillation; E87.6 Hypokalemia; N18.9 Chronic kidney disease, unspecified; D64.9 Anemia, unspecified; E78.00 Pure hypercholesterolemia, unspecified; E83.42 Hypomagnesemia; Z79.01 Long term (current) use of anticoagulants; Z79.51 Long term (current) use of inhaled steroids; Z79.899 Other long term (current) drug therapy; Z87.891 Personal history of nicotine dependence; Z79.82 Long term (current) use of aspirin; Z88.8 Allergy status to other drugs, medicaments and biological substances; Z91.013 Allergy to seafood; Z68.33 Body mass index [BMI] 33.0-33.9, adult
CPT/HCPCS: 36415; 71045; 76770; 78452; 80048; 80053; 80061; 80305; 81003; 82270; 82550; 83735; 83880; 84439; 84443; 84484; 85025; 93005; 93017; 93306; 94640; 96361; 96365; 96366; 96375; 99291; A9500; J1940; J2785; J3475; J3480; J3490; J7040; J7060; J7611; J7620

== ENCOUNTER 2019-10-12 12:28 | Inpatient (IN) | payer MEDICARE, OTHER ==
[~2019-10-12] VITALS: Ht 167.6 cm; Wt 78.5 kg
[2019-10-12] MEDS ORDERED: SODIUM CHLORIDE 0.9% 500 ML IV ONE (12:41)
[2019-10-12] MEDS ORDERED: DILTIAZEM HCL 5MG/ML 5ML VIAL IV ONE (13:00)
[2019-10-12] MEDS ORDERED: LIDOCAINE HCL 1% 20ML VIAL (Pyxis) INJ ONE (13:47)
[2019-10-12 13:54] LABS: BASOPHILS % 0.6 % (0.0-2.0); EOSINOPHILS % 2.2 % (0.0-5.0); HEMOGLOBIN. 12.5 g/dL (14.0-18.0); LYMPHOCYTES % 12.7 % (20.0-50.0); MEAN CORPUSCULAR HEMOGLOBIN 30.8 pg (28.0-32.0); MEAN CORPUSCULAR VOLUME 96.6 fL (80.0-94.0); MONOCYTES % 6.6 % (2.0-8.0); NEUTROPHILS % 77.9 % (40.0-76.0); PLATELET 362 x1000/uL (130-400); RED BLOOD CELL COUNT 4.04 mill/uL (4.7-6.1); RED CELL DISTRIBUTION WIDTH 16.1 % (11.6-14.6)
[2019-10-12 13:59] LABS: CHLORIDE 108 mEq/L (98-107); INR 1.1; PARTIAL THROMBOPLASTIN TIME 30.6 sec (23.4-31.0); PROTHROMBIN TIME 11.1 sec (9.6-11.0)
[2019-10-12 14:08] LABS: T4 FREE 1.4 ng/dL (0.76-1.46)
[2019-10-12] MEDS ORDERED: DILTIAZEM HCL 5MG/ML 10ML VIAL IV ONE (14:30)
[2019-10-12 15:48] LABS: CLARITY URINE CLEAR (CLEAR); COLOR URINE YELLOW (YELLOW); KETONES URINE NEGATIVE (NEGATIVE); LEUKOCYTE ESTERASE URINE NEGATIVE (NEGATIVE); NITRITE URINE NEGATIVE (NEGATIVE); OCCULT BLOOD URINE NEGATIVE (NEGATIVE); PROTEIN URINE NEGATIVE (NEGATIVE); SPECIFIC GRAVITY URINE 1.005 (1.005-1.030); UROBILINOGEN URINE 0.2 E.U./dL (0.2-1.0)
[2019-10-12] MEDS ORDERED: APIXABAN 2.5 MG TABLET PO NR (16:45)
[2019-10-12] MEDS: SODIUM CHLORIDE 0.9% 400 ML IV NR (17:29)
[2019-10-12] MEDS ORDERED: MAGNESIUM/ALUMINUM HYDROXIDE/SIMETHICONE 30ML UDC PO PRN (18:15)
[2019-10-12] MEDS ORDERED: DOCUSATE SODIUM 100MG CAPSULE PO PRN (18:15)
[2019-10-12] MEDS ORDERED: IPRATROPIUM/ALBUTEROL 0.5-3(2.5)MG/3ML NEB NEB PRN (18:15)
[2019-10-12] MEDS ORDERED: CLONIDINE 0.1MG TABLET PO PRN (18:15)
[2019-10-12] MEDS ORDERED: ACETAMINOPHEN 325MG TABLET PO PRN (18:15)
[2019-10-12] MEDS ORDERED: ONDANSETRON HCL 4MG/2ML INJ IV PRN (18:15)
[2019-10-12] MEDS ORDERED: GUAIFENESIN 200MG/10ML SUGAR FREE UDC PO PRN (18:15)
[2019-10-12] MEDS ORDERED: MORPHINE SULFATE 2 MG/ML CPJ (NOT FOR IM USE) IV PRN (19:19)
[2019-10-12 20:00] VITALS: BP 141/93
[2019-10-12] MEDS: DILTIAZEM HCL 60MG TABLET PO SCH (20:50)
[2019-10-12] MEDS: AMIODARONE HCL 200 MG TABLET PO SCH (20:50)
[2019-10-12 21:24] VITALS: BP 141/93
[2019-10-13] VITALS (8 sets, daily range): BP systolic 128–148; BP diastolic 44–96
[2019-10-13] MEDS: SODIUM CHLORIDE 0.9% 400 ML IV NR (03:42)
[2019-10-13] MEDS: DILTIAZEM HCL 60MG TABLET PO SCH (04:46)
[2019-10-13 06:24] LABS: BASOPHILS % 0.6 % (0.0-2.0); HEMATOCRIT. 30.4 % (42.0-52.0); MEAN CORPUSCULAR HEMOGLOBIN 31.2 pg (28.0-32.0); MEAN CORPUSCULAR VOLUME 94.6 fL (80.0-94.0); MEAN PLATELET VOLUME 8.3 fl (7.4-10.4); MONOCYTES % 11.3 % (2.0-8.0); NEUTROPHILS % 68.1 % (40.0-76.0); PLATELET 316 x1000/uL (130-400); RED BLOOD CELL COUNT 3.22 mill/uL (4.7-6.1); RED CELL DISTRIBUTION WIDTH 16.2 % (11.6-14.6)
[2019-10-13] MEDS: AMIODARONE HCL 200 MG TABLET PO SCH (08:33)
[2019-10-13] MEDS ORDERED: APIXABAN 2.5 MG TABLET PO SCH (09:00)
[2019-10-13] MEDS ORDERED: APIXABAN 5 MG TABLET PO SCH (09:00)
[2019-10-13] MEDS ORDERED: CALCIUM CARBONATE 1250MG TABLET (500MG ELEMENTAL CALCIUM) PO SCH (09:00)
== END 2019-10-13 13:43 | disposition left against medical advice (07) | DRG 308 ==
LOC: ER 12:28 → 3WST 14:21 → EDBEDREQ 14:37 → ENRESERV 18:11
PROVIDERS: ADMIT Hospitalist; ATTEND Hospitalist
PROC: 05HY33Z Insertion of Infusion Device into Upper Vein, Percutaneous Approach (ICD-10-PCS; principal; 2019-10-12)
PROC: B54NZZA Ultrasonography of Left Upper Extremity Veins, Guidance (ICD-10-PCS; 2019-10-12)
DX: I48.0 Paroxysmal atrial fibrillation (principal); I50.23 Acute on chronic systolic (congestive) heart failure; D68.59 Other primary thrombophilia; F19.20 Other psychoactive substance dependence, uncomplicated; J44.9 Chronic obstructive pulmonary disease, unspecified; I47.2 Ventricular tachycardia; I11.0 Hypertensive heart disease with heart failure; E05.90 Thyrotoxicosis, unspecified without thyrotoxic crisis or storm; E78.5 Hyperlipidemia, unspecified; I95.9 Hypotension, unspecified; Z53.29 Procedure and treatment not carried out because of patient's decision for other reasons; D64.9 Anemia, unspecified; Z87.891 Personal history of nicotine dependence; Z79.01 Long term (current) use of anticoagulants; Z88.6 Allergy status to analgesic agent; Z91.013 Allergy to seafood; Z79.899 Other long term (current) drug therapy
CPT/HCPCS: 36415; 71045; 76937; 80048; 80053; 80061; 81003; 83735; 83880; 84439; 84443; 84484; 85025; 93005; 93970; 96374; 99291; C1725; J3490; J7040

== ENCOUNTER 2019-11-08 15:06 | Inpatient (IN) | payer MEDICARE, OTHER ==
[~2019-11-08] VITALS: Ht 175.3 cm; Wt 84.9 kg
[2019-11-08] MEDS ORDERED: ALBUTEROL (0.083%) 2.5MG/3ML NEB HHN STA (15:33)
[2019-11-08] MEDS ORDERED: IPRATROPIUM BROMIDE (0.02%) 0.5MG/2.5ML NEB HHN STA (15:33)
[2019-11-08] MEDS ORDERED: ONDANSETRON HCL 4MG/2ML INJ IV STA (15:33)
[2019-11-08] MEDS ORDERED: DILTIAZEM HCL 5MG/ML 5ML VIAL IV ONE ×2 (15:45→16:28)
[2019-11-08 16:22] LABS: BG BASE EXCESS 1.5 mmol/L (-2.0-2.0); BG CARBOXYHEMOGLOBIN 0.7 % (0.5-1.5); BG DEOXYHEMOGLOBIN 2.2 % (0.0-5.0); BG FRACTION INSPIRED OXYGEN 36; BG HCO3 ACT 25.6 mmol/L (22.0-26.0); BG METHEMOGLOBIN 0.1 % (0.0-1.5); BG OXYGEN SATURATION 97.8 % (92.0-98.5); BG PCO2 38.6 mmHg (35.0-45.0); BG PO2 110.5 mmHg (75.0-100.0); BG SAMPLE SITE LEFT RADIAL; BG TOTAL HEMOGLOBIN 12.8 g/dL (12.0-18.0); BG VENT MODE NASAL CANNULA
[2019-11-08 16:35] LABS: BASOPHILS % 0.7 % (0.0-2.0); HEMATOCRIT. 36.1 % (42.0-52.0); HEMOGLOBIN. 11.9 g/dL (14.0-18.0); LYMPHOCYTES % 17.2 % (20.0-50.0); MEAN CORPUSCULAR HEMOGLOBIN 31.2 pg (28.0-32.0); MEAN CORPUSCULAR VOLUME 94.2 fL (80.0-94.0); MEAN PLATELET VOLUME 8.9 fl (7.4-10.4); MONOCYTES % 10.2 % (2.0-8.0); NEUTROPHILS % 70.9 % (40.0-76.0); PLATELET 254 x1000/uL (130-400); RED BLOOD CELL COUNT 3.83 mill/uL (4.7-6.1); RED CELL DISTRIBUTION WIDTH 15.9 % (11.6-14.6)
[2019-11-08 16:42] LABS: CHLORIDE 108 mEq/L (98-107)
[2019-11-08 16:43] LABS: INR 1.2; PROTHROMBIN TIME 12.5 sec (9.6-11.0)
[2019-11-08] MEDS ORDERED: NITROGLYCERIN 0.4MG TABLET SL SL ONE (17:00)
[2019-11-08] MEDS ORDERED: HYDRALAZINE 20MG/ML VIAL IV ONE (18:45)
[2019-11-08] MEDS ORDERED: CLONIDINE 0.1MG TABLET PO PRN (19:00)
[2019-11-08] MEDS ORDERED: ONDANSETRON HCL 4MG/2ML INJ IV PRN (19:00)
[2019-11-08 20:23] LABS: HEPATITIS B SURFACE ANTIGEN NEGATIVE
[2019-11-08] MEDS ORDERED: ACETAMINOPHEN 650MG/20.3ML UDC PO NR (20:30)
[2019-11-08 20:52] LABS: HEPATITIS A AB IGM NEGATIVE (NEGATIVE)
[2019-11-08] MEDS ORDERED: FUROSEMIDE 40MG/4ML VIAL IVP SCH (21:59)
[2019-11-08 22:00] VITALS: BP 156/97
[2019-11-08] MEDS ORDERED: POTASSIUM CHLORIDE 20MEQ TABLET SR PO SCH (22:00)
[2019-11-08 22:12] VITALS: BP 156/103
[2019-11-08] MEDS ORDERED: CEFTRIAXONE 1 G PREMIX 50 ML IV NR (23:00)
[2019-11-08] MEDS ORDERED: ALBU6.7H9 INH (23:02)
[2019-11-08] MEDS ORDERED: SACU1TAB MT (23:02)
[2019-11-08] MEDS ORDERED: CALC-3 MT (23:04)
[2019-11-09] VITALS (12 sets, daily range): BP systolic 99–137; BP diastolic 63–85
[2019-11-09] MEDS ORDERED: AZITHROMYCIN 500 MG in DEXT 5% WATER 250 ML IV SCH ×2
[2019-11-09] MEDS: ACETAMINOPHEN 325MG TABLET PO PRN ×2 (00:11→15:03)
[2019-11-09] MEDS: CARVEDILOL 12.5MG TABLET PO SCH ×3 (00:12→21:00)
[2019-11-09] MEDS: DILTIAZEM HCL 60MG TABLET PO SCH ×4 (01:27→21:41)
[2019-11-09 06:31] LABS: BASOPHILS % 0.7 % (0.0-2.0); EOSINOPHILS % 2.4 % (0.0-5.0); HEMATOCRIT. 29.3 % (42.0-52.0); HEMOGLOBIN. 9.8 g/dL (14.0-18.0); LYMPHOCYTES % 14.5 % (20.0-50.0); MEAN CORPUSCULAR HEMOGLOBIN 31.5 pg (28.0-32.0); MEAN CORPUSCULAR VOLUME 94.2 fL (80.0-94.0); MEAN PLATELET VOLUME 8.6 fl (7.4-10.4); MONOCYTES % 14.1 % (2.0-8.0); NEUTROPHILS % 68.3 % (40.0-76.0); PLATELET 187 x1000/uL (130-400); RED BLOOD CELL COUNT 3.11 mill/uL (4.7-6.1); RED CELL DISTRIBUTION WIDTH 15.7 % (11.6-14.6)
[2019-11-09] MEDS ORDERED: APIXABAN 5 MG TABLET PO SCH ×2 (09:00→17:00)
[2019-11-09] MEDS: FUROSEMIDE 40MG/4ML VIAL IVP SCH ×2 (09:03→16:18)
[2019-11-09] MEDS: IPRATROPIUM/ALBUTEROL 0.5-3(2.5)MG/3ML NEB HHN SCH ×2 (12:58→20:58)
[2019-11-09] MEDS: APIXABAN 5 MG TABLET PO SCH (16:18)
[2019-11-09] MEDS: PREDNISONE 20MG TABLET PO SCH (16:19)
[2019-11-09] MEDS ORDERED: AMIODARONE HCL 200 MG TABLET PO SCH (17:00)
[2019-11-09] MEDS: CEFTRIAXONE 1 G PREMIX 50 ML IV SCH (20:08)
[2019-11-09] MEDS: BUDESONIDE 0.5MG/2ML NEB HHN SCH (20:58)
[2019-11-09] MEDS: AZITHROMYCIN 500 MG in DEXT 5% WATER 250 ML IV SCH (21:41)
[2019-11-10] VITALS (41 sets, daily range): BP systolic 118–161; BP diastolic 10–113
[2019-11-10] MEDS: IPRATROPIUM/ALBUTEROL 0.5-3(2.5)MG/3ML NEB HHN SCH ×6 (00:29→20:03)
[2019-11-10] MEDS: DILTIAZEM HCL 60MG TABLET PO SCH ×3 (06:16→22:00)
[2019-11-10] MEDS ORDERED: DIGOXIN 500MCG/2ML AMP IV NR (07:15)
[2019-11-10 07:25] LABS: BASOPHILS % 0.1 % (0.0-2.0); HEMATOCRIT. 29.5 % (42.0-52.0); HEMOGLOBIN. 9.8 g/dL (14.0-18.0); LYMPHOCYTES % 7.4 % (20.0-50.0); MEAN CORPUSCULAR HEMOGLOBIN 31.4 pg (28.0-32.0); MEAN PLATELET VOLUME 9.2 fl (7.4-10.4); MONOCYTES % 3.5 % (2.0-8.0); PLATELET 212 x1000/uL (130-400); RED BLOOD CELL COUNT 3.11 mill/uL (4.7-6.1)
[2019-11-10] MEDS: APIXABAN 5 MG TABLET PO SCH ×2 (08:25→17:00)
[2019-11-10] MEDS: PREDNISONE 20MG TABLET PO SCH ×2 (08:25→17:00)
[2019-11-10] MEDS: FUROSEMIDE 40MG/4ML VIAL IVP SCH ×2 (08:27→17:22)
[2019-11-10] MEDS: CARVEDILOL 12.5MG TABLET PO SCH ×2 (08:28→21:00)
[2019-11-10] MEDS: BUDESONIDE 0.5MG/2ML NEB HHN SCH ×2 (08:40→20:03)
[2019-11-10] MEDS: ACETAMINOPHEN 325MG TABLET PO PRN (10:15)
[2019-11-10] MEDS: TAMSULOSIN HCL 0.4MG SR CAPSULE PO SCH (11:15)
[2019-11-10] MEDS: DILTIAZEM HCL 125 MG in DEXT 5% WATER 100 ML IV PRN (16:44)
[2019-11-10] MEDS: CEFTRIAXONE 1 G PREMIX 50 ML IV SCH (20:37)
[2019-11-10] MEDS: AMIODARONE HCL 200 MG TABLET PO SCH (21:00)
[2019-11-10] MEDS: AZITHROMYCIN 500 MG in DEXT 5% WATER 250 ML IV SCH (21:26)
[2019-11-11] VITALS (88 sets, daily range): BP systolic 72–182; BP diastolic 40–132
[2019-11-11] MEDS: IPRATROPIUM/ALBUTEROL 0.5-3(2.5)MG/3ML NEB HHN SCH ×7 (00:06→23:58)
[2019-11-11] MEDS: DILTIAZEM HCL 125 MG in DEXT 5% WATER 100 ML IV PRN ×3 (02:54→20:28)
[2019-11-11 05:47] LABS: HEMATOCRIT. 33.1 % (42.0-52.0); HEMOGLOBIN. 10.7 g/dL (14.0-18.0); MEAN CORPUSCULAR HEMOGLOBIN 30.8 pg (28.0-32.0); MEAN CORPUSCULAR VOLUME 95.4 fL (80.0-94.0); MEAN PLATELET VOLUME 9.3 fl (7.4-10.4); PLATELET 241 x1000/uL (130-400); RED BLOOD CELL COUNT 3.47 mill/uL (4.7-6.1); RED CELL DISTRIBUTION WIDTH 15.7 % (11.6-14.6)
[2019-11-11] MEDS: DILTIAZEM HCL 60MG TABLET PO SCH ×3 (06:00→23:20)
[2019-11-11] MEDS: BUDESONIDE 0.5MG/2ML NEB HHN SCH ×2 (08:09→19:53)
[2019-11-11 08:19] LABS: PLATELET ESTIMATE NORMAL
[2019-11-11] MEDS: APIXABAN 5 MG TABLET PO SCH ×2 (08:54→17:38)
[2019-11-11] MEDS: CARVEDILOL 12.5MG TABLET PO SCH ×2 (08:54→21:19)
[2019-11-11] MEDS: AMIODARONE HCL 200 MG TABLET PO SCH ×2 (08:55→21:19)
[2019-11-11] MEDS: PREDNISONE 20MG TABLET PO SCH ×2 (08:55→17:38)
[2019-11-11] MEDS: TAMSULOSIN HCL 0.4MG SR CAPSULE PO SCH (08:55)
[2019-11-11] MEDS: FUROSEMIDE 40MG/4ML VIAL IVP SCH ×2 (09:12→17:38)
[2019-11-11] MEDS: VERAPAMIL HCL 2.5 MG/1 ML 2ML VIAL IV PRN ×2 (11:00→17:39)
[2019-11-11 17:25] LABS: ETHANOL BLOOD < 10 mg/dL
[2019-11-11 17:26] LABS: HDL CHOLESTEROL 49 mg/dL (40-59)
[2019-11-11 17:28] LABS: LDL CHOLESTEROL 120 mg/dL (5-100)
[2019-11-11 17:32] LABS: T4 FREE 1.23 ng/dL (0.76-1.46)
[2019-11-11 18:54] LABS: *AMPHETAMINES SCREEN URINE NEGATIVE (NEGATIVE); CANNABINOID URINE SCREEN NEGATIVE (NEGATIVE); OPIATES URINE SCREEN NEGATIVE (NEGATIVE)
[2019-11-11 18:55] LABS: *BARBITURATES SCREEN URINE NEGATIVE (NEGATIVE); *BENZODIAZEPINES SCREEN URINE NEGATIVE (NEGATIVE); *COCAINE SCREEN URINE NEGATIVE (NEGATIVE); METHADONE URINE SCREEN NEGATIVE (NEGATIVE); PHENCYCLIDINE URINE SCREEN NEGATIVE (NEGATIVE)
[2019-11-11] MEDS: CEFTRIAXONE 1 G PREMIX 50 ML IV SCH (20:14)
[2019-11-11] MEDS: AZITHROMYCIN 500 MG in DEXT 5% WATER 250 ML IV SCH (21:18)
[2019-11-12] VITALS (78 sets, daily range): BP systolic 115–159; BP diastolic 76–108
[2019-11-12] MEDS: IPRATROPIUM/ALBUTEROL 0.5-3(2.5)MG/3ML NEB HHN SCH ×5 (04:03→20:51)
[2019-11-12 05:44] LABS: HEMATOCRIT. 34.8 % (42.0-52.0); HEMOGLOBIN. 11.3 g/dL (14.0-18.0); MEAN CORPUSCULAR HEMOGLOBIN 31.2 pg (28.0-32.0); MEAN CORPUSCULAR VOLUME 96.5 fL (80.0-94.0); MEAN PLATELET VOLUME 9.3 fl (7.4-10.4); PLATELET 295 x1000/uL (130-400); RED BLOOD CELL COUNT 3.61 mill/uL (4.7-6.1); RED CELL DISTRIBUTION WIDTH 16.1 % (11.6-14.6)
[2019-11-12] MEDS: DILTIAZEM HCL 60MG TABLET PO SCH ×3 (06:00→21:00)
[2019-11-12 07:01] LABS: PLATELET ESTIMATE NORMAL
[2019-11-12] MEDS: BUDESONIDE 0.5MG/2ML NEB HHN SCH (08:00)
[2019-11-12] MEDS: CARVEDILOL 12.5MG TABLET PO SCH ×2 (08:14→20:23)
[2019-11-12] MEDS: PREDNISONE 20MG TABLET PO SCH ×2 (08:15→16:54)
[2019-11-12] MEDS: AMIODARONE HCL 200 MG TABLET PO SCH (08:15)
[2019-11-12] MEDS: FUROSEMIDE 40MG/4ML VIAL IVP SCH ×2 (08:15→16:54)
[2019-11-12] MEDS: APIXABAN 5 MG TABLET PO SCH (08:15)
[2019-11-12] MEDS: TAMSULOSIN HCL 0.4MG SR CAPSULE PO SCH (08:18)
[2019-11-12] MEDS: RIVAROXABAN 15 MG TABLET PO SCH (16:54)
[2019-11-12] MEDS: CEFTRIAXONE 1 G PREMIX 50 ML IV SCH (19:58)
[2019-11-12] MEDS: AZITHROMYCIN 500 MG in DEXT 5% WATER 250 ML IV SCH (20:59)
[2019-11-13] VITALS (22 sets, daily range): BP systolic 106–158; BP diastolic 55–116
[2019-11-13] MEDS: IPRATROPIUM/ALBUTEROL 0.5-3(2.5)MG/3ML NEB HHN SCH ×6 (00:48→21:25)
[2019-11-13] MEDS: DILTIAZEM HCL 60MG TABLET PO SCH (05:53)
[2019-11-13 06:02] LABS: HEMOGLOBIN. 11.1 g/dL (14.0-18.0); MEAN CORPUSCULAR VOLUME 94.6 fL (80.0-94.0); MEAN PLATELET VOLUME 9.4 fl (7.4-10.4); PLATELET 250 x1000/uL (130-400); RED BLOOD CELL COUNT 3.59 mill/uL (4.7-6.1); RED CELL DISTRIBUTION WIDTH 16.1 % (11.6-14.6)
[2019-11-13 07:49] LABS: PLATELET ESTIMATE NORMAL
[2019-11-13] MEDS: CARVEDILOL 12.5MG TABLET PO SCH ×2 (09:29→21:01)
[2019-11-13] MEDS: FUROSEMIDE 40MG/4ML VIAL IVP SCH ×2 (09:29→17:45)
[2019-11-13] MEDS: TAMSULOSIN HCL 0.4MG SR CAPSULE PO SCH (09:29)
[2019-11-13] MEDS: PREDNISONE 20MG TABLET PO SCH (09:29)
[2019-11-13] MEDS: BUDESONIDE 0.5MG/2ML NEB HHN SCH ×2 (13:29→17:12)
[2019-11-13] MEDS: DILTIAZEM HCL 90MG TABLET PO SCH ×2 (13:59→21:01)
[2019-11-13] MEDS: ACETAMINOPHEN 325MG TABLET PO PRN (14:16)
[2019-11-13] MEDS: RIVAROXABAN 15 MG TABLET PO SCH (17:46)
[2019-11-13] MEDS: CEFTRIAXONE 1 G PREMIX 50 ML IV SCH (21:01)
[2019-11-13] MEDS: AZITHROMYCIN 500 MG in DEXT 5% WATER 250 ML IV SCH (22:22)
[2019-11-14] VITALS (13 sets, daily range): BP systolic 129–168; BP diastolic 76–97
[2019-11-14] MEDS: IPRATROPIUM/ALBUTEROL 0.5-3(2.5)MG/3ML NEB HHN SCH ×6 (00:22→20:23)
[2019-11-14] MEDS: BUDESONIDE 0.5MG/2ML NEB HHN SCH ×3 (04:26→20:23)
[2019-11-14] MEDS: DILTIAZEM HCL 90MG TABLET PO SCH (05:01)
[2019-11-14 07:25] LABS: BASOPHILS % 0.3 % (0.0-2.0); EOSINOPHILS % 0.5 % (0.0-5.0); HEMATOCRIT. 35.7 % (42.0-52.0); HEMOGLOBIN. 11.7 g/dL (14.0-18.0); LYMPHOCYTES % 11.4 % (20.0-50.0); MEAN CORPUSCULAR HEMOGLOBIN 30.9 pg (28.0-32.0); MEAN CORPUSCULAR VOLUME 94.4 fL (80.0-94.0); MEAN PLATELET VOLUME 8.8 fl (7.4-10.4); MONOCYTES % 11.2 % (2.0-8.0); NEUTROPHILS % 76.6 % (40.0-76.0); PLATELET 292 x1000/uL (130-400); RED BLOOD CELL COUNT 3.78 mill/uL (4.7-6.1); RED CELL DISTRIBUTION WIDTH 16.1 % (11.6-14.6)
[2019-11-14] MEDS: CARVEDILOL 12.5MG TABLET NG SCH ×2 (08:32→20:27)
[2019-11-14] MEDS: TAMSULOSIN HCL 0.4MG SR CAPSULE PO SCH (08:32)
[2019-11-14] MEDS: FUROSEMIDE 40MG/4ML VIAL IVP SCH (08:32)
[2019-11-14] MEDS ORDERED: KCL 20MEQ/100ML PREMIX 100 ML IV SCH (10:00)
[2019-11-14] MEDS ORDERED: BISACODYL 10MG SUPP PR PRN (11:15)
[2019-11-14] MEDS: VERAPAMIL HCL 2.5 MG/1 ML 2ML VIAL IV PRN (11:24)
[2019-11-14] MEDS ORDERED: DILTIAZEM HCL 90MG TABLET PO SCH (12:00)
[2019-11-14] MEDS ORDERED: LACTULOSE 20G/30ML UDC PO SCH (12:00)
[2019-11-14] MEDS ORDERED: DILTIAZEM HCL 5MG/ML 5ML VIAL IV ONE (16:30)
[2019-11-14] MEDS: RIVAROXABAN 15 MG TABLET PO SCH (17:28)
[2019-11-14] MEDS: DILTIAZEM HCL 125 MG in DEXT 5% WATER 100 ML IV SCH (17:40)
[2019-11-14 20:11] LABS: FOLIC ACID (FOLATE) SERUM 6.4 ng/mL (>5.38)
[2019-11-14] MEDS: CEFTRIAXONE 1 G PREMIX 50 ML IV SCH (21:31)
[2019-11-14] MEDS: AZITHROMYCIN 500 MG in DEXT 5% WATER 250 ML IV SCH (22:40)
[2019-11-15] VITALS (14 sets, daily range): BP systolic 130–146; BP diastolic 58–107
[2019-11-15] MEDS: IPRATROPIUM/ALBUTEROL 0.5-3(2.5)MG/3ML NEB HHN SCH ×6 (00:09→20:28)
[2019-11-15] MEDS: DILTIAZEM HCL 125 MG in DEXT 5% WATER 100 ML IV SCH (06:31)
[2019-11-15 06:43] LABS: BASOPHILS % 0.9 % (0.0-2.0); HEMATOCRIT. 36.3 % (42.0-52.0); HEMOGLOBIN. 12.1 g/dL (14.0-18.0); LYMPHOCYTES % 11.1 % (20.0-50.0); MEAN CORPUSCULAR HEMOGLOBIN 31.2 pg (28.0-32.0); MEAN CORPUSCULAR VOLUME 93.8 fL (80.0-94.0); MEAN PLATELET VOLUME 9.1 fl (7.4-10.4); MONOCYTES % 10.2 % (2.0-8.0); NEUTROPHILS % 74.8 % (40.0-76.0); PLATELET 285 x1000/uL (130-400); RED BLOOD CELL COUNT 3.87 mill/uL (4.7-6.1); RED CELL DISTRIBUTION WIDTH 16.2 % (11.6-14.6)
[2019-11-15] MEDS: TAMSULOSIN HCL 0.4MG SR CAPSULE PO SCH (08:28)
[2019-11-15] MEDS: CARVEDILOL 12.5MG TABLET NG SCH ×2 (08:29→21:37)
[2019-11-15] MEDS: BUDESONIDE 0.5MG/2ML NEB HHN SCH ×2 (08:59→20:28)
[2019-11-15] MEDS ORDERED: ASPIRIN 81MG TABLET PO SCH (09:00)
[2019-11-15] MEDS ORDERED: NA PHOS,M-B/NA PHOS,DI-BA ENEMA 118ML PR NR (10:45)
[2019-11-15] MEDS ORDERED: DILTIAZEM HCL 5MG/ML 5ML VIAL IV NR (10:47)
[2019-11-15] MEDS ORDERED: POTASSIUM CHLORIDE 20MEQ TABLET SR PO SCH (11:15)
[2019-11-15] MEDS: SODIUM CHLORIDE 0.9% 1,000 ML IV SCH (12:15)
[2019-11-15] MEDS: CLONIDINE 0.1MG TABLET NG SCH ×3 (12:40→21:38)
[2019-11-15] MEDS: LACTULOSE 20G/30ML UDC PO SCH ×2 (14:48→21:36)
[2019-11-15] MEDS: ACETAMINOPHEN 325MG TABLET PO PRN (16:12)
[2019-11-15] MEDS: CEFTRIAXONE 1 G PREMIX 50 ML IV SCH (20:19)
[2019-11-15] MEDS: AZITHROMYCIN 500 MG in DEXT 5% WATER 250 ML IV SCH (21:36)
[2019-11-16] VITALS (12 sets, daily range): BP systolic 128–155; BP diastolic 82–102
[2019-11-16] MEDS: IPRATROPIUM/ALBUTEROL 0.5-3(2.5)MG/3ML NEB HHN SCH ×5 (00:22→21:13)
[2019-11-16] MEDS: DILTIAZEM HCL 125 MG in DEXT 5% WATER 100 ML IV SCH ×2 (02:01→18:30)
[2019-11-16] MEDS: LACTULOSE 20G/30ML UDC PO SCH ×3 (06:01→20:18)
[2019-11-16] MEDS: CLONIDINE 0.1MG TABLET NG SCH ×3 (06:02→20:17)
[2019-11-16 06:42] LABS: BASOPHILS % 0.5 % (0.0-2.0); HEMATOCRIT. 36.9 % (42.0-52.0); HEMOGLOBIN. 12.1 g/dL (14.0-18.0); LYMPHOCYTES % 9.8 % (20.0-50.0); MEAN CORPUSCULAR HEMOGLOBIN 31.1 pg (28.0-32.0); MEAN CORPUSCULAR VOLUME 95.1 fL (80.0-94.0); MEAN PLATELET VOLUME 8.9 fl (7.4-10.4); MONOCYTES % 10.1 % (2.0-8.0); NEUTROPHILS % 75.6 % (40.0-76.0); PLATELET 261 x1000/uL (130-400); RED BLOOD CELL COUNT 3.89 mill/uL (4.7-6.1)
[2019-11-16 07:04] LABS: CHLORIDE 106 mEq/L (98-107)
[2019-11-16] MEDS: SODIUM CHLORIDE 0.9% 1,000 ML IV SCH (08:02)
[2019-11-16] MEDS: BUDESONIDE 0.5MG/2ML NEB HHN SCH (08:32)
[2019-11-16] MEDS: TAMSULOSIN HCL 0.4MG SR CAPSULE PO SCH (09:26)
[2019-11-16] MEDS: CARVEDILOL 12.5MG TABLET NG SCH ×2 (09:26→20:17)
[2019-11-16] MEDS ORDERED: NA PHOS,M-B/NA PHOS,DI-BA ENEMA 118ML PR NR (10:00)
[2019-11-16] MEDS ORDERED: SORBITOL 70% SOLN 30ML PO NR (10:00)
[2019-11-16] MEDS: DILTIAZEM HCL 30MG TABLET PO SCH ×2 (13:29→18:36)
[2019-11-16] MEDS: ENOXAPARIN 80MG/0.8ML SYR SUBCUT SCH (16:22)
[2019-11-16] MEDS ORDERED: DILTIAZEM HCL 30MG TABLET PO NR (20:00)
[2019-11-17] VITALS (21 sets, daily range): BP systolic 112–155; BP diastolic 67–108
[2019-11-17] MEDS: DILTIAZEM HCL 60MG TABLET PO SCH ×3 (00:23→12:29)
[2019-11-17] MEDS: IPRATROPIUM/ALBUTEROL 0.5-3(2.5)MG/3ML NEB HHN SCH ×4 (02:32→21:10)
[2019-11-17] MEDS: SODIUM CHLORIDE 0.9% 1,000 ML IV SCH (03:15)
[2019-11-17] MEDS: CLONIDINE 0.1MG TABLET NG SCH ×3 (04:42→22:54)
[2019-11-17] MEDS: LACTULOSE 20G/30ML UDC PO SCH ×3 (04:43→21:22)
[2019-11-17] MEDS: ENOXAPARIN 80MG/0.8ML SYR SUBCUT SCH ×2 (04:43→18:35)
[2019-11-17 06:27] LABS: BASOPHILS % 0.4 % (0.0-2.0); EOSINOPHILS % 1.8 % (0.0-5.0); HEMATOCRIT. 37.1 % (42.0-52.0); HEMOGLOBIN. 11.9 g/dL (14.0-18.0); MEAN CORPUSCULAR HEMOGLOBIN 30.4 pg (28.0-32.0); MEAN PLATELET VOLUME 9.6 fl (7.4-10.4); MONOCYTES % 13.9 % (2.0-8.0); NEUTROPHILS % 75.9 % (40.0-76.0); PLATELET 263 x1000/uL (130-400); RED BLOOD CELL COUNT 3.91 mill/uL (4.7-6.1)
[2019-11-17 07:04] LABS: CHLORIDE 107 mEq/L (98-107)
[2019-11-17] MEDS: TAMSULOSIN HCL 0.4MG SR CAPSULE PO SCH (08:37)
[2019-11-17] MEDS: CARVEDILOL 12.5MG TABLET NG SCH (08:38)
[2019-11-17] MEDS: VERAPAMIL HCL 2.5 MG/1 ML 2ML VIAL IV PRN (11:44)
[2019-11-17] MEDS ORDERED: SORBITOL 70% SOLN 30ML PO NR (12:30)
[2019-11-17] MEDS ORDERED: DILTIAZEM HCL 30MG TABLET PO NR (14:04)
[2019-11-17 14:26] LABS: BG BASE EXCESS 4.4 mmol/L (-2.0-2.0); BG CARBOXYHEMOGLOBIN 0.8 % (0.5-1.5); BG DEOXYHEMOGLOBIN 10.5 % (0.0-5.0); BG FRACTION INSPIRED OXYGEN 21; BG METHEMOGLOBIN 0.2 % (0.0-1.5); BG OXYGEN SATURATION 89.4 % (92.0-98.5); BG OXYHEMOGLOBIN 88.5 % (94.0-97.0); BG PH 7.485 (7.350-7.450); BG PO2 55.9 mmHg (75.0-100.0); BG SAMPLE SITE RIGHT RADIAL; BG TOTAL HEMOGLOBIN 11.8 g/dL (12.0-18.0); BG VENT MODE ROOM AIR
[2019-11-17] MEDS: DILTIAZEM HCL 90MG TABLET PO SCH (18:35)
[2019-11-17] MEDS ORDERED: METOPROLOL TARTRATE 50MG TABLET PO SCH (21:00)
[2019-11-18] VITALS (19 sets, daily range): BP systolic 107–209; BP diastolic 61–121
[2019-11-18] MEDS: SODIUM CHLORIDE 0.9% 1,000 ML IV SCH (00:03)
[2019-11-18] MEDS: DILTIAZEM HCL 90MG TABLET PO SCH ×3 (00:12→12:46)
[2019-11-18] MEDS: IPRATROPIUM/ALBUTEROL 0.5-3(2.5)MG/3ML NEB HHN SCH ×4 (00:38→19:55)
[2019-11-18] MEDS: LACTULOSE 20G/30ML UDC PO SCH ×3 (05:45→22:00)
[2019-11-18] MEDS: CLONIDINE 0.1MG TABLET NG SCH ×3 (06:04→23:05)
[2019-11-18] MEDS: ENOXAPARIN 80MG/0.8ML SYR SUBCUT SCH (06:05)
[2019-11-18 06:26] LABS: BASOPHILS % 0.3 % (0.0-2.0); EOSINOPHILS % 1.3 % (0.0-5.0); HEMATOCRIT. 32.9 % (42.0-52.0); HEMOGLOBIN. 10.7 g/dL (14.0-18.0); LYMPHOCYTES % 9.8 % (20.0-50.0); MEAN CORPUSCULAR HEMOGLOBIN 31.3 pg (28.0-32.0); MEAN PLATELET VOLUME 9.6 fl (7.4-10.4); MONOCYTES % 13.9 % (2.0-8.0); NEUTROPHILS % 74.7 % (40.0-76.0); PLATELET 209 x1000/uL (130-400); RED BLOOD CELL COUNT 3.43 mill/uL (4.7-6.1); RED CELL DISTRIBUTION WIDTH 15.5 % (11.6-14.6)
[2019-11-18 06:52] LABS: CHLORIDE 108 mEq/L (98-107)
[2019-11-18] MEDS ORDERED: METOCLOPRAMIDE HCL 10MG/2ML VIAL IV ONE ×2 (07:00→13:00)
[2019-11-18 09:53] LABS: INR 1.1; PROTHROMBIN TIME 11.8 sec (9.6-11.0)
[2019-11-18] MEDS: TAMSULOSIN HCL 0.4MG SR CAPSULE PO SCH (10:00)
[2019-11-18] MEDS: METOPROLOL TARTRATE 50MG TABLET PO SCH ×2 (10:00→23:04)
[2019-11-18] MEDS ORDERED: FUROSEMIDE 20MG/2ML VIAL IVP NR (15:15)
[2019-11-18] MEDS ORDERED: MIDAZOLAM HCL 2 MG/2 ML VIAL ONE (16:11)
[2019-11-18] MEDS ORDERED: DIPHENHYDRAMINE 50MG/ML VIAL ONE (16:12)
[2019-11-18] MEDS ORDERED: PROPOFOL 200MG/20ML VIAL IV ONE (16:12)
[2019-11-18] MEDS ORDERED: SODIUM CHLORIDE 0.9% 10ML VIAL ONE (16:32)
[2019-11-18] MEDS ORDERED: CEFAZOLIN SODIUM 1000MG/VIAL ONE (16:32)
[2019-11-18] MEDS ORDERED: FUROSEMIDE 40MG/4ML VIAL ONE (20:40)
[2019-11-18] MEDS ORDERED: FUROSEMIDE 40MG/4ML VIAL IVP SCH (20:45)
[2019-11-18 20:47] LABS: BG BASE EXCESS 2.1 mmol/L (-2.0-2.0); BG CARBOXYHEMOGLOBIN 0.7 % (0.5-1.5); BG DEOXYHEMOGLOBIN 12.7 % (0.0-5.0); BG FRACTION INSPIRED OXYGEN 60; BG HCO3 ACT 31.4 mmol/L (22.0-26.0); BG METHEMOGLOBIN 0.4 % (0.0-1.5); BG OXYGEN SATURATION 87.2 % (92.0-98.5); BG OXYHEMOGLOBIN 86.2 % (94.0-97.0); BG PCO2 75.2 mmHg (35.0-45.0); BG PH 7.239 (7.350-7.450); BG PO2 64.8 mmHg (75.0-100.0); BG SAMPLE SITE RIGHT RADIAL; BG TOTAL HEMOGLOBIN 12.2 g/dL (12.0-18.0); BG VENT MODE MASK - SIMPLE
[2019-11-18 22:42] LABS: BG BASE EXCESS -1.8 mmol/L (-2.0-2.0); BG BILEVEL POS AIRWAY PRESSURE 18/5; BG CARBOXYHEMOGLOBIN 0.3 % (0.5-1.5); BG DEOXYHEMOGLOBIN 2.8 % (0.0-5.0); BG FRACTION INSPIRED OXYGEN 80; BG HCO3 ACT 22.6 mmol/L (22.0-26.0); BG METHEMOGLOBIN 0.2 % (0.0-1.5); BG OXYGEN SATURATION 97.2 % (92.0-98.5); BG OXYHEMOGLOBIN 96.7 % (94.0-97.0); BG PCO2 36.7 mmHg (35.0-45.0); BG PH 7.407 (7.350-7.450); BG PO2 105.7 mmHg (75.0-100.0); BG SAMPLE SITE RIGHT RADIAL; BG TOTAL HEMOGLOBIN 10.3 g/dL (12.0-18.0); BG VENT MODE MASK - BIPAP; BG VENT RATE 20 set
[2019-11-18] MEDS: VERAPAMIL HCL 2.5 MG/1 ML 2ML VIAL IV PRN (23:17)
[2019-11-19] VITALS (14 sets, daily range): BP systolic 90–125; BP diastolic 46–81
[2019-11-19] MEDS: METOCLOPRAMIDE HCL 10MG/2ML VIAL IV SCH ×4 (01:00→17:21)
[2019-11-19] MEDS: IPRATROPIUM/ALBUTEROL 0.5-3(2.5)MG/3ML NEB HHN SCH ×4 (01:45→20:29)
[2019-11-19] MEDS: LACTULOSE 20G/30ML UDC PO SCH ×2 (05:38→16:03)
[2019-11-19] MEDS: DILTIAZEM HCL 90MG TABLET PO SCH ×4 (06:00→17:25)
[2019-11-19] MEDS: CLONIDINE 0.1MG TABLET NG SCH ×2 (06:00→16:03)
[2019-11-19] MEDS: METOPROLOL TARTRATE 50MG TABLET PO SCH (09:00)
[2019-11-19] MEDS ORDERED: PANTOPRAZOLE SODIUM 40 MG/VIAL IV SCH (09:00)
[2019-11-19] MEDS ORDERED: FUROSEMIDE 40MG/4ML VIAL IVP NR (09:15)
[2019-11-19] MEDS: TAMSULOSIN HCL 0.4MG SR CAPSULE PO SCH (09:31)
[2019-11-19 09:47] LABS: BG BASE EXCESS 4.2 mmol/L (-2.0-2.0); BG BILEVEL POS AIRWAY PRESSURE 18/5; BG CARBOXYHEMOGLOBIN 0.3 % (0.5-1.5); BG DEOXYHEMOGLOBIN 0.7 % (0.0-5.0); BG FRACTION INSPIRED OXYGEN 80; BG HCO3 ACT 29.3 mmol/L (22.0-26.0); BG METHEMOGLOBIN 0.3 % (0.0-1.5); BG OXYGEN SATURATION 99.3 % (92.0-98.5); BG OXYHEMOGLOBIN 98.7 % (94.0-97.0); BG PCO2 46.5 mmHg (35.0-45.0); BG PH 7.417 (7.350-7.450); BG PO2 218.8 mmHg (75.0-100.0); BG SAMPLE SITE RIGHT RADIAL; BG TOTAL HEMOGLOBIN 8.9 g/dL (12.0-18.0); BG VENT MODE MASK - BIPAP; BG VENT RATE 20 set
[2019-11-19 10:16] LABS: CHLORIDE 110 mEq/L (98-107)
[2019-11-19] MEDS ORDERED: FUROSEMIDE 20MG/2ML VIAL IVP NR (11:03)
[2019-11-19 13:02] LABS: BASOPHILS % 0.3 % (0.0-2.0); EOSINOPHILS % 0.5 % (0.0-5.0); HEMATOCRIT. 27.5 % (42.0-52.0); HEMOGLOBIN. 8.9 g/dL (14.0-18.0); LYMPHOCYTES % 8.7 % (20.0-50.0); MEAN CORPUSCULAR HEMOGLOBIN 31.3 pg (28.0-32.0); MEAN CORPUSCULAR VOLUME 96.5 fL (80.0-94.0); MEAN PLATELET VOLUME 10.2 fl (7.4-10.4); MONOCYTES % 10.7 % (2.0-8.0); NEUTROPHILS % 79.8 % (40.0-76.0); PLATELET 204 x1000/uL (130-400); RED BLOOD CELL COUNT 2.85 mill/uL (4.7-6.1); RED CELL DISTRIBUTION WIDTH 15.2 % (11.6-14.6)
[2019-11-19] MEDS ORDERED: RIVAROXABAN 15 MG TABLET PO SCH (17:20)
== END 2019-11-19 20:50 | DRG 871 ==
LOC: ER 15:06 → 3WST 18:43 → EDBEDREQSVC 18:45 → EDBEDREQ 18:45 → ENRESERV 19:45 → MICUSO 11-10 13:41 → 3WST 11-13 10:20
PROVIDERS: ADMIT Internal Medicine; ATTEND Internal Medicine
PROC: 5A09357 Assistance with Respiratory Ventilation, Less than 24 Consecutive Hours, Continuous Positive Airway Pressure (ICD-10-PCS; 2019-11-08)
PROC: 5A09357 Assistance with Respiratory Ventilation, Less than 24 Consecutive Hours, Continuous Positive Airway Pressure (ICD-10-PCS; 2019-11-09)
PROC: 0DH68UZ Insertion of Feeding Device into Stomach, Via Natural or Artificial Opening Endoscopic (ICD-10-PCS; principal; 2019-11-18)
PROC: 5A09357 Assistance with Respiratory Ventilation, Less than 24 Consecutive Hours, Continuous Positive Airway Pressure (ICD-10-PCS; 2019-11-18)
DX: A41.9 Sepsis, unspecified organism (principal); I50.23 Acute on chronic systolic (congestive) heart failure; J96.20 Acute and chronic respiratory failure, unspecified whether with hypoxia or hypercapnia; I63.412 Cerebral infarction due to embolism of left middle cerebral artery; I42.9 Cardiomyopathy, unspecified; I13.0 Hypertensive heart and chronic kidney disease with heart failure and stage 1 through stage 4 chronic kidney disease, or unspecified chronic kidney disease; G81.91 Hemiplegia, unspecified affecting right dominant side; G93.40 Encephalopathy, unspecified; J44.1 Chronic obstructive pulmonary disease with (acute) exacerbation; N17.9 Acute kidney failure, unspecified; I48.92 Unspecified atrial flutter; R47.01 Aphasia; E46 Unspecified protein-calorie malnutrition; E87.8 Other disorders of electrolyte and fluid balance, not elsewhere classified; E87.5 Hyperkalemia; N18.9 Chronic kidney disease, unspecified; E87.6 Hypokalemia; I48.0 Paroxysmal atrial fibrillation; E78.5 Hyperlipidemia, unspecified; R47.1 Dysarthria and anarthria; R74.0 Nonspecific elevation of levels of transaminase and lactic acid dehydrogenase [LDH]; K59.00 Constipation, unspecified; E78.00 Pure hypercholesterolemia, unspecified; I25.10 Atherosclerotic heart disease of native coronary artery without angina pectoris; K29.70 Gastritis, unspecified, without bleeding; N40.0 Benign prostatic hyperplasia without lower urinary tract symptoms; K57.90 Diverticulosis of intestine, part unspecified, without perforation or abscess without bleeding; R13.10 Dysphagia, unspecified; D63.8 Anemia in other chronic diseases classified elsewhere; Z99.81 Dependence on supplemental oxygen; Z86.73 Personal history of transient ischemic attack (TIA), and cerebral infarction without residual deficits; Z87.891 Personal history of nicotine dependence; Z79.01 Long term (current) use of anticoagulants; Z79.899 Other long term (current) drug therapy; Z93.1 Gastrostomy status; Z88.6 Allergy status to analgesic agent; Z91.013 Allergy to seafood; Z68.27 Body mass index [BMI] 27.0-27.9, adult
CPT/HCPCS: 36415; 36600; 70544; 70551; 71045; 73030; 74018; 74176; 76700; 80048; 80053; 80061; 80305; 80320; 82140; 82375; 82607; 82746; 82805; 82962; 83036; 83735; 83880; 84439; 84443; 84481; 84484; 85025; 86705; 86709; 86803; 87340; 88305; 92610; 93005; 93306; 93880; 93970; 94640; 94660; 97110; 97112; 97163; 97167; 97530; 99291; C9113; J0360; J0456; J0690; J0696; J1200; J1650; J1940; J2250; J2405; J2704; J2765; J3480; J3490; J7030; J7060; J7512; J7626; G0480

== ENCOUNTER 2021-04-16 01:54 | Inpatient (IN) | payer MEDICARE, MEDICAID ==
[~2021-04-16] VITALS: Ht 180.3 cm; Wt 78.5 kg
[~2021-04-16 01:54] MED LIST changes: +ALBU6.7H9 INH; -ATOR-2 MT; +CALC-3 MT; -DILT90TA2 PO; -LOSA50TA3 PO; -PANT40TA4 PO; +PANT40TA51 PO
[2021-04-16 02:19] LABS: BASOPHILS % 0.3 % (0.0-2.0); EOSINOPHILS % 1.8 % (0.0-5.0); HEMATOCRIT. 38.4 % (42.0-52.0); HEMOGLOBIN. 12.6 g/dL (14.0-18.0); LYMPHOCYTES % 9.3 % (20.0-50.0); MEAN CORPUSCULAR HEMOGLOBIN 30.9 pg (28.0-32.0); MEAN CORPUSCULAR VOLUME 94.7 fL (80.0-94.0); MEAN PLATELET VOLUME 9.1 fl (7.4-10.4); MONOCYTES % 6.4 % (2.0-8.0); NEUTROPHILS % 82.2 % (40.0-76.0); PLATELET 263 x1000/uL (130-400); RED BLOOD CELL COUNT 4.06 mill/uL (4.7-6.1)
[2021-04-16 02:23] LABS: CHLORIDE 109 mEq/L (98-107)
[2021-04-16] MEDS ORDERED: CEFTRIAXONE 1 G PREMIX 50 ML IV NR (04:15)
[2021-04-16] MEDS ORDERED: NOREPINEPHRINE 32 MG in DEXT 5% WATER 218 ML IV PRN ×2 (04:15→04:30)
[2021-04-16] MEDS ORDERED: FUROSEMIDE 40MG/4ML VIAL IVP NR (04:15)
[2021-04-16] MEDS ORDERED: CEFTRIAXONE 1 G PREMIX 50 ML IV SCH (10:00)
[2021-04-16] MEDS: IPRATROPIUM/ALBUTEROL 0.5-3(2.5)MG/3ML NEB HHN SCH ×2 (12:26→20:05)
[2021-04-16 16:20] LABS: BG BASE EXCESS 2.7 mmol/L (-2.0-2.0); BG CARBOXYHEMOGLOBIN 0.3 % (0.5-1.5); BG DEOXYHEMOGLOBIN 0.4 % (0.0-5.0); BG HCO3 ACT 26.9 mmol/L (22.0-26.0); BG METHEMOGLOBIN 0.2 % (0.0-1.5); BG OXYGEN SATURATION 99.6 % (92.0-98.5); BG OXYHEMOGLOBIN 99.1 % (94.0-97.0); BG PCO2 40.2 mmHg (35.0-45.0); BG PH 7.444 (7.350-7.450); BG PO2 316.7 mmHg (75.0-100.0); BG SAMPLE SITE RIGHT RADIAL; BG TOTAL HEMOGLOBIN 11.7 g/dL (12.0-18.0); BG VENT MODE VENT - AC
[2021-04-16 16:30] VITALS: BP 134/81
[2021-04-16 16:50] VITALS: BP 134/85
[2021-04-16 18:00] VITALS: BP 123/71
[2021-04-16 20:00] VITALS: BP 138/81
[2021-04-16 22:00] VITALS: BP 125/70
[2021-04-16 22:03] LABS: CLARITY URINE CLEAR (CLEAR); COLOR URINE YELLOW (YELLOW); KETONES URINE NEGATIVE (NEGATIVE); LEUKOCYTE ESTERASE URINE NEGATIVE (NEGATIVE); NITRITE URINE NEGATIVE (NEGATIVE); OCCULT BLOOD URINE NEGATIVE (NEGATIVE); PROTEIN URINE 2+ (NEGATIVE); SPECIFIC GRAVITY URINE 1.014 (1.005-1.030)
[2021-04-17] VITALS (12 sets, daily range): BP systolic 91–139; BP diastolic 57–75
[2021-04-17] MEDS: IPRATROPIUM/ALBUTEROL 0.5-3(2.5)MG/3ML NEB HHN SCH ×4 (01:47→20:21)
[2021-04-17 06:21] LABS: BASOPHILS % 0.2 % (0.0-2.0); EOSINOPHILS % 1.7 % (0.0-5.0); HEMATOCRIT. 38.8 % (42.0-52.0); HEMOGLOBIN. 12.3 g/dL (14.0-18.0); LYMPHOCYTES % 7.4 % (20.0-50.0); MEAN CORPUSCULAR HEMOGLOBIN 29.9 pg (28.0-32.0); MEAN CORPUSCULAR VOLUME 94.2 fL (80.0-94.0); MEAN PLATELET VOLUME 9.3 fl (7.4-10.4); MONOCYTES % 5.4 % (2.0-8.0); NEUTROPHILS % 85.3 % (40.0-76.0); PLATELET 278 x1000/uL (130-400); RED BLOOD CELL COUNT 4.12 mill/uL (4.7-6.1); RED CELL DISTRIBUTION WIDTH 14.7 % (11.6-14.6)
[2021-04-17 07:31] LABS: CHLORIDE 109 mEq/L (98-107)
[2021-04-17 08:49] LABS: BG BASE EXCESS 4.2 mmol/L (-2.0-2.0); BG CARBOXYHEMOGLOBIN 0.3 % (0.5-1.5); BG FRACTION INSPIRED OXYGEN 85; BG HCO3 ACT 29.7 mmol/L (22.0-26.0); BG METHEMOGLOBIN 0.3 % (0.0-1.5); BG OXYHEMOGLOBIN 98.4 % (94.0-97.0); BG PCO2 48.8 mmHg (35.0-45.0); BG PH 7.402 (7.350-7.450); BG SAMPLE SITE RIGHT RADIAL; BG TOTAL HEMOGLOBIN 11.2 g/dL (12.0-18.0); BG VENT MODE VENT - AC
[2021-04-17] MEDS: LOSARTAN POTASSIUM 25 MG TABLET PO SCH (10:31)
[2021-04-17] MEDS: CEFTRIAXONE 1,000 MG in DEXTROSE 5% WATER 50 ML IV SCH (10:31)
[2021-04-17] MEDS: ENOXAPARIN 40MG/0.4ML SYR SUBCUT SCH (10:58)
[2021-04-17] MEDS: CARVEDILOL 6.25 MG TABLET PO SCH (20:05)
[2021-04-18] VITALS (12 sets, daily range): BP systolic 95–121; BP diastolic 53–68
[2021-04-18] MEDS: IPRATROPIUM/ALBUTEROL 0.5-3(2.5)MG/3ML NEB HHN SCH ×4 (02:17→20:33)
[2021-04-18 05:59] LABS: HEMATOCRIT. 33.5 % (42.0-52.0); HEMOGLOBIN. 10.8 g/dL (14.0-18.0); MEAN CORPUSCULAR HEMOGLOBIN 31.1 pg (28.0-32.0); MEAN CORPUSCULAR VOLUME 96.6 fL (80.0-94.0); MEAN PLATELET VOLUME 9.1 fl (7.4-10.4); PLATELET 265 x1000/uL (130-400); RED BLOOD CELL COUNT 3.47 mill/uL (4.7-6.1)
[2021-04-18 06:07] LABS: CHLORIDE 111 mEq/L (98-107)
[2021-04-18] MEDS: LOSARTAN POTASSIUM 25 MG TABLET PO SCH (08:21)
[2021-04-18] MEDS: ENOXAPARIN 40MG/0.4ML SYR SUBCUT SCH (08:22)
[2021-04-18] MEDS: CARVEDILOL 6.25 MG TABLET PO SCH ×2 (09:00→20:47)
[2021-04-18] MEDS: CEFTRIAXONE 1,000 MG in DEXTROSE 5% WATER 50 ML IV SCH (10:15)
[2021-04-18] MEDS: SODIUM CHLORIDE 0.45% 1,000 ML IV SCH (13:06)
[2021-04-18 20:56] LABS: PLATELET ESTIMATE NORMAL
[2021-04-19] VITALS (12 sets, daily range): BP systolic 99–140; BP diastolic 57–81
[2021-04-19] MEDS: IPRATROPIUM/ALBUTEROL 0.5-3(2.5)MG/3ML NEB HHN SCH ×4 (00:52→21:33)
[2021-04-19] MEDS: ENOXAPARIN 40MG/0.4ML SYR SUBCUT SCH (08:14)
[2021-04-19 09:14] LABS: BG BASE EXCESS 5.2 mmol/L (-2.0-2.0); BG CARBOXYHEMOGLOBIN 0.3 % (0.5-1.5); BG DEOXYHEMOGLOBIN 3.2 % (0.0-5.0); BG FRACTION INSPIRED OXYGEN 30; BG HCO3 ACT 29.8 mmol/L (22.0-26.0); BG METHEMOGLOBIN 0.3 % (0.0-1.5); BG OXYGEN SATURATION 96.8 % (92.0-98.5); BG OXYHEMOGLOBIN 96.2 % (94.0-97.0); BG PCO2 44.2 mmHg (35.0-45.0); BG PH 7.447 (7.350-7.450); BG PO2 89.8 mmHg (75.0-100.0); BG SAMPLE SITE RIGHT RADIAL; BG TOTAL HEMOGLOBIN 10.5 g/dL (12.0-18.0); BG VENT MODE VENT - AC
[2021-04-19] MEDS: LOSARTAN POTASSIUM 25 MG TABLET PO SCH (09:57)
[2021-04-19] MEDS: CARVEDILOL 6.25 MG TABLET PO SCH ×2 (09:58→21:00)
[2021-04-19] MEDS: CEFTRIAXONE 1,000 MG in DEXTROSE 5% WATER 50 ML IV SCH (10:01)
[2021-04-19] MEDS: SODIUM CHLORIDE 0.45% 1,000 ML IV SCH (10:09)
[2021-04-19] MEDS: ACETAMINOPHEN 325MG TABLET PO PRN ×2 (12:47→21:02)
[2021-04-19] MEDS: CEFEPIME 2,000 MG in DEXT 5% WATER 100 ML IV SCH (17:19)
[2021-04-19] MEDS: VANCOMYCIN 1250MG in DEXTROSE 5% WATER 250ML IV SCH (18:40)
[2021-04-20] VITALS (13 sets, daily range): BP systolic 98–154; BP diastolic 60–88
[2021-04-20] MEDS: CEFEPIME 2,000 MG in DEXT 5% WATER 100 ML IV SCH ×3 (00:05→17:27)
[2021-04-20] MEDS: IPRATROPIUM/ALBUTEROL 0.5-3(2.5)MG/3ML NEB HHN SCH ×4 (02:55→20:54)
[2021-04-20 06:28] LABS: BASOPHILS % 0.3 % (0.0-2.0); EOSINOPHILS % 2.8 % (0.0-5.0); HEMATOCRIT. 28.1 % (42.0-52.0); HEMOGLOBIN. 9.2 g/dL (14.0-18.0); LYMPHOCYTES % 9.6 % (20.0-50.0); MEAN CORPUSCULAR HEMOGLOBIN 30.8 pg (28.0-32.0); MEAN CORPUSCULAR VOLUME 94.6 fL (80.0-94.0); MEAN PLATELET VOLUME 9.4 fl (7.4-10.4); MONOCYTES % 9.6 % (2.0-8.0); NEUTROPHILS % 77.7 % (40.0-76.0); PLATELET 246 x1000/uL (130-400); RED BLOOD CELL COUNT 2.98 mill/uL (4.7-6.1); RED CELL DISTRIBUTION WIDTH 14.7 % (11.6-14.6)
[2021-04-20 06:42] LABS: CHLORIDE 109 mEq/L (98-107)
[2021-04-20] MEDS: SODIUM CHLORIDE 0.45% 1,000 ML IV SCH (06:57)
[2021-04-20] MEDS: LOSARTAN POTASSIUM 25 MG TABLET PO SCH (09:52)
[2021-04-20] MEDS: ENOXAPARIN 40MG/0.4ML SYR SUBCUT SCH (09:52)
[2021-04-20] MEDS: CARVEDILOL 6.25 MG TABLET PO SCH ×2 (09:55→20:14)
[2021-04-20] MEDS: VANCOMYCIN 1250MG in DEXTROSE 5% WATER 250ML IV SCH (12:42)
[2021-04-20] MEDS: ACETAMINOPHEN 325MG TABLET PO PRN (18:12)
[2021-04-20] MEDS: ONDANSETRON HCL 4MG/2ML INJ IV PRN (20:14)
[2021-04-21] VITALS (13 sets, daily range): BP systolic 103–150; BP diastolic 62–94
[2021-04-21] MEDS: SODIUM CHLORIDE 0.45% 1,000 ML IV SCH (00:21)
[2021-04-21] MEDS: CEFEPIME 2,000 MG in DEXT 5% WATER 100 ML IV SCH ×3 (00:21→18:11)
[2021-04-21] MEDS: IPRATROPIUM/ALBUTEROL 0.5-3(2.5)MG/3ML NEB HHN SCH ×4 (02:47→21:48)
[2021-04-21 07:01] LABS: CHLORIDE 107 mEq/L (98-107)
[2021-04-21 09:06] LABS: BG BASE EXCESS 2.1 mmol/L (-2.0-2.0); BG CARBOXYHEMOGLOBIN 0.3 % (0.5-1.5); BG DEOXYHEMOGLOBIN 3.5 % (0.0-5.0); BG FRACTION INSPIRED OXYGEN 40; BG HCO3 ACT 26.5 mmol/L (22.0-26.0); BG METHEMOGLOBIN 0.3 % (0.0-1.5); BG OXYGEN SATURATION 96.5 % (92.0-98.5); BG OXYHEMOGLOBIN 95.9 % (94.0-97.0); BG PCO2 40.3 mmHg (35.0-45.0); BG PH 7.435 (7.350-7.450); BG PO2 84.3 mmHg (75.0-100.0); BG SAMPLE SITE RIGHT RADIAL; BG TOTAL HEMOGLOBIN 9.9 g/dL (12.0-18.0); BG VENT MODE VENT - AC
[2021-04-21] MEDS: ENOXAPARIN 40MG/0.4ML SYR SUBCUT SCH (10:02)
[2021-04-21] MEDS: ACETAMINOPHEN 325MG TABLET PO PRN (10:02)
[2021-04-21] MEDS: CARVEDILOL 6.25 MG TABLET PO SCH ×2 (10:03→21:19)
[2021-04-21] MEDS: LOSARTAN POTASSIUM 25 MG TABLET PO SCH (10:03)
[2021-04-21] MEDS: ONDANSETRON HCL 4MG/2ML INJ IV PRN (10:03)
[2021-04-21] MEDS: GUAIFENESIN 200MG/10ML SUGAR FREE UDC PO SCH ×2 (18:10→23:52)
[2021-04-21] MEDS ORDERED: ACETYLCYSTEINE 100MG/ML 10% VIAL 4ML INH SCH (22:00)
[2021-04-22] VITALS: BP 110/67
[2021-04-22] MEDS: CEFEPIME 2,000 MG in DEXT 5% WATER 100 ML IV SCH (01:10)
[2021-04-22 02:00] VITALS: BP 140/76
== END 2021-04-22 04:37 | DRG 870 ==
LOC: ER 02:04 → MICUSO 04:48 → 5EST 15:12
PROVIDERS: ADMIT Internal Medicine; ATTEND Internal Medicine
PROC: 5A1955Z Respiratory Ventilation, Greater than 96 Consecutive Hours (ICD-10-PCS; principal; 2021-04-16)
DX: A41.52 Sepsis due to Pseudomonas (principal); E43 Unspecified severe protein-calorie malnutrition; J96.20 Acute and chronic respiratory failure, unspecified whether with hypoxia or hypercapnia; G92 Toxic encephalopathy; J15.1 Pneumonia due to Pseudomonas; I50.22 Chronic systolic (congestive) heart failure; I42.9 Cardiomyopathy, unspecified; J44.0 Chronic obstructive pulmonary disease with (acute) lower respiratory infection; Z99.11 Dependence on respirator [ventilator] status; Z20.822 Contact with and (suspected) exposure to COVID-19; D64.9 Anemia, unspecified; R13.10 Dysphagia, unspecified; E87.8 Other disorders of electrolyte and fluid balance, not elsewhere classified; Z93.0 Tracheostomy status; Z68.24 Body mass index [BMI] 24.0-24.9, adult; Z93.1 Gastrostomy status; Z88.5 Allergy status to narcotic agent; Z91.013 Allergy to seafood; Z87.01 Personal history of pneumonia (recurrent)
CPT/HCPCS: 36415; 36600; 71045; 80048; 80053; 80202; 81003; 82375; 82805; 82962; 83605; 83880; 84145; 84484; 85025; 87070; 87077; 87186; 87426; 93005; 93306; 94002; 94003; 94640; 99291; J0692; J0696; J1650; J1940; J2405; J3370; J3490; J7060; J7608

== ENCOUNTER 2021-09-04 10:43 | Emergency (ER) | payer MEDICAID, MEDICARE ==
[~2021-09-04] VITALS: Ht 172.7 cm; Wt 84.0 kg
[2021-09-04 11:23] LABS: BG BASE EXCESS 8.9 mmol/L (-2.0-2.0); BG CARBOXYHEMOGLOBIN 0.3 % (0.5-1.5); BG FRACTION INSPIRED OXYGEN 100; BG HCO3 ACT 35.1 mmol/L (22.0-26.0); BG METHEMOGLOBIN 0.1 % (0.0-1.5); BG OXYHEMOGLOBIN 95.6 % (94.0-97.0); BG PCO2 57.9 mmHg (35.0-45.0); BG PH 7.401 (7.350-7.450); BG PO2 85.3 mmHg (75.0-100.0); BG SAMPLE SITE RIGHT RADIAL; BG TOTAL HEMOGLOBIN 10.3 g/dL (12.0-18.0); BG VENT MODE MASK - NRB
[2021-09-04 13:48] LABS: BASOPHILS % 0.5 % (0.0-2.0); EOSINOPHILS % 3.5 % (0.0-5.0); HEMATOCRIT. 26.6 % (42.0-52.0); HEMOGLOBIN. 8.9 g/dL (14.0-18.0); LYMPHOCYTES % 14.3 % (20.0-50.0); MEAN CORPUSCULAR HEMOGLOBIN 32.6 pg (28.0-32.0); MEAN PLATELET VOLUME 10.1 fl (7.4-10.4); MONOCYTES % 8.1 % (2.0-8.0); NEUTROPHILS % 73.6 % (40.0-76.0); PLATELET 167 x1000/uL (130-400); RED BLOOD CELL COUNT 2.74 mill/uL (4.7-6.1); RED CELL DISTRIBUTION WIDTH 13.8 % (11.6-14.6)
[2021-09-04 13:52] LABS: CHLORIDE 103 mEq/L (98-107)
[2021-09-04] MEDS ORDERED: TETANUS, DIPHTHERIA, PERTUSSIS VAC/PF 0.5ML (>10YR OLD) IM ONE (15:15)
[2021-09-04] MEDS ORDERED: LIDOCAINE HCL/EPINEPHRINE 1%-EPI 1:100,000 20 ML VIAL INFIL NR (15:15)
[2021-09-04 15:19] LABS: CLARITY URINE CLEAR (CLEAR); COLOR URINE YELLOW (YELLOW); KETONES URINE NEGATIVE (NEGATIVE); LEUKOCYTE ESTERASE URINE NEGATIVE (NEGATIVE); NITRITE URINE NEGATIVE (NEGATIVE); OCCULT BLOOD URINE NEGATIVE (NEGATIVE); PROTEIN URINE 1+ (NEGATIVE); UROBILINOGEN URINE 0.2 E.U./dL (0.2-1.0)
[2021-09-04 18:34] VITALS: BP 149/76
== END 2021-09-04 18:36 ==
LOC: ER 11:02
DX: S02.2XXA Fracture of nasal bones, initial encounter for closed fracture (principal); S01.111A Laceration without foreign body of right eyelid and periocular area, initial encounter; I50.9 Heart failure, unspecified; J44.9 Chronic obstructive pulmonary disease, unspecified; I69.359 Hemiplegia and hemiparesis following cerebral infarction affecting unspecified side; Z93.0 Tracheostomy status; Z93.1 Gastrostomy status; Z91.013 Allergy to seafood; Z88.5 Allergy status to narcotic agent; Z20.822 Contact with and (suspected) exposure to COVID-19; W06.XXXA Fall from bed, initial encounter; Y93.89 Activity, other specified; Y92.122 Bedroom in nursing home as the place of occurrence of the external cause
CPT/HCPCS: 12002; 36415; 36600; 70450; 70486; 71045; 80053; 81003; 82375; 82805; 83605; 84145; 84484; 85025; 87040; 87086; 87426; 90471; 90715; 93005; 99285; J3490

== ENCOUNTER 2021-10-01 17:55 | Inpatient (IN) | payer MEDICARE, MEDICAID ==
[~2021-10-01] VITALS: Ht 175.3 cm; Wt 81.9 kg
[2021-10-01 20:11] LABS: BASOPHILS % 0.1 % (0.0-2.0); EOSINOPHILS % 0.6 % (0.0-5.0); HEMATOCRIT. 30.1 % (42.0-52.0); HEMOGLOBIN. 9.6 g/dL (14.0-18.0); MEAN CORPUSCULAR HEMOGLOBIN 31.2 pg (28.0-32.0); MEAN CORPUSCULAR VOLUME 98.1 fL (80.0-94.0); MEAN PLATELET VOLUME 10.2 fl (7.4-10.4); MONOCYTES % 9.9 % (2.0-8.0); NEUTROPHILS % 76.4 % (40.0-76.0); PLATELET 162 x1000/uL (130-400); RED BLOOD CELL COUNT 3.07 mill/uL (4.7-6.1); RED CELL DISTRIBUTION WIDTH 14.1 % (11.6-14.6)
[2021-10-01 20:21] LABS: CHLORIDE 102 mEq/L (98-107)
[2021-10-01] MEDS ORDERED: PIPERACILLIN/TAZOBACTAM 3.375GM/50ML PREMIX IV ONE (21:00)
[2021-10-01] MEDS ORDERED: PIPERACILLIN/TAZ 3.375G PREMIX 50 ML IV NR (21:00)
[2021-10-01 21:26] LABS: CLARITY URINE CLEAR (CLEAR); COLOR URINE YELLOW (YELLOW); KETONES URINE NEGATIVE (NEGATIVE); LEUKOCYTE ESTERASE URINE NEGATIVE (NEGATIVE); NITRITE URINE NEGATIVE (NEGATIVE); OCCULT BLOOD URINE 2+ (NEGATIVE); PH URINE 7.5 (4.5-8.0); PROTEIN URINE 4+ (NEGATIVE); SPECIFIC GRAVITY URINE 1.021 (1.005-1.030)
[2021-10-01] MEDS: VANCOMYCIN 1G PREMIX 200 ML IV NR ×2 (22:46→23:10)
[2021-10-02] VITALS (31 sets, daily range): BP systolic 83–141; BP diastolic 40–92
[2021-10-02] MEDS ORDERED: DILTIAZEM HCL 5MG/ML 5ML VIAL IV SCH (01:00)
[2021-10-02] MEDS ORDERED: SODIUM CHLORIDE 0.9% 500 ML IV NR (05:00)
[2021-10-02] MEDS ORDERED: ONDANSETRON HCL 4MG/2ML INJ IV PRN (09:30)
[2021-10-02] MEDS ORDERED: NOREPINEPHRINE 8 MG in DEXTROSE 5% WATER 250 ML IV PRN (09:30)
[2021-10-02] MEDS ORDERED: NOREPINEPHRINE 8MG/250ML PMX 250 ML IV PRN (09:30)
[2021-10-02] MEDS ORDERED: IPRATROPIUM/ALBUTEROL 0.5-3(2.5)MG/3ML NEB HHN PRN (09:30)
[2021-10-02] MEDS ORDERED: PIPERACILLIN/TAZ 3.375G PREMIX 50 ML IV SCH (10:00)
[2021-10-02] MEDS ORDERED: DIGOXIN 500MCG/2ML AMP IV NR ×3 (11:00→17:10)
[2021-10-02] MEDS ORDERED: IPRATROPIUM BROMIDE (0.02%) 0.5MG/2.5ML NEB HHN PRN (11:30)
[2021-10-02 11:43] LABS: BG BASE EXCESS 11.9 mmol/L (-2.0-2.0); BG CARBOXYHEMOGLOBIN 0.2 % (0.5-1.5); BG DEOXYHEMOGLOBIN 3.7 % (0.0-5.0); BG FRACTION INSPIRED OXYGEN 60; BG HCO3 ACT 36.7 mmol/L (22.0-26.0); BG METHEMOGLOBIN 0.4 % (0.0-1.5); BG OXYGEN SATURATION 96.3 % (92.0-98.5); BG OXYHEMOGLOBIN 95.7 % (94.0-97.0); BG PCO2 50.7 mmHg (35.0-45.0); BG PH 7.478 (7.350-7.450); BG PO2 81.9 mmHg (75.0-100.0); BG SAMPLE SITE LEFT RADIAL; BG TOTAL HEMOGLOBIN 8.8 g/dL (12.0-18.0); BG VENT MODE VENT - AC
[2021-10-02] MEDS ORDERED: MIDODRINE HCL 5MG TABLET PO SCH (13:00)
[2021-10-02] MEDS ORDERED: ENOXAPARIN 40MG/0.4ML SYR SUBCUT SCH (13:00)
[2021-10-02] MEDS: MIDODRINE HCL 5MG TABLET PO SCH ×2 (14:52→21:12)
[2021-10-02] MEDS ORDERED: DILTIAZEM HCL 5MG/ML 5ML VIAL IV PRN (15:30)
[2021-10-02] MEDS: IPRATROPIUM BROMIDE (0.02%) 0.5MG/2.5ML NEB HHN SCH ×2 (16:00→21:31)
[2021-10-02 16:14] LABS: BASOPHILS % 0.2 % (0.0-2.0); EOSINOPHILS % 0.1 % (0.0-5.0); HEMATOCRIT. 24.8 % (42.0-52.0); MEAN CORPUSCULAR HEMOGLOBIN 31.7 pg (28.0-32.0); MEAN CORPUSCULAR VOLUME 98.2 fL (80.0-94.0); MEAN PLATELET VOLUME 9.8 fl (7.4-10.4); MONOCYTES % 8.7 % (2.0-8.0); PLATELET 147 x1000/uL (130-400); RED BLOOD CELL COUNT 2.52 mill/uL (4.7-6.1); RED CELL DISTRIBUTION WIDTH 14.6 % (11.6-14.6)
[2021-10-02] MEDS: ENOXAPARIN 80MG/0.8ML SYR SUBCUT SCH (17:17)
[2021-10-02] MEDS: PANTOPRAZOLE 40MG DR TABLET PO SCH (17:18)
[2021-10-02 17:27] LABS: CHLORIDE 105 mEq/L (98-107)
[2021-10-02 17:39] LABS: CREATINE KINASE MB FRACTION 1.7 ng/mL (0.5-3.6)
[2021-10-02 17:48] LABS: CREATINE KINASE 2104 IU/L (39-308)
[2021-10-02] MEDS: DILTIAZEM HCL 30MG TABLET PEG SCH ×2 (18:00→23:34)
[2021-10-02] MEDS: DILTIAZEM HCL 125 MG in DEXT 5% WATER 100 ML IV PRN (19:04)
[2021-10-02] MEDS: PHENYLEPHRINE 50 MG in DEXT 5% WATER 245 ML IV PRN (19:04)
[2021-10-02] MEDS: PIPERACILLIN/TAZOBACTAM 3.375G in DEXT 5% WATER 50ML IV SCH (21:11)
[2021-10-02] MEDS: METOPROLOL TARTRATE 25MG TABLET PEG SCH (21:12)
[2021-10-02] MEDS: SODIUM CHLORIDE 0.45% 1,000 ML IV SCH (22:30)
[2021-10-03] VITALS (96 sets, daily range): BP systolic 89–183; BP diastolic 46–118
[2021-10-03] MEDS: IPRATROPIUM BROMIDE (0.02%) 0.5MG/2.5ML NEB HHN SCH ×6 (02:01→19:49)
[2021-10-03] MEDS: MIDODRINE HCL 5MG TABLET PO SCH ×3 (05:41→17:33)
[2021-10-03] MEDS: DILTIAZEM HCL 30MG TABLET PEG SCH ×3 (05:41→17:33)
[2021-10-03] MEDS: PIPERACILLIN/TAZOBACTAM 3.375G in DEXT 5% WATER 50ML IV SCH ×4 (05:41→21:21)
[2021-10-03] MEDS: PHENYLEPHRINE 50 MG in DEXT 5% WATER 245 ML IV PRN (06:37)
[2021-10-03 06:56] LABS: INR 1.1; PROTHROMBIN TIME 11.4 sec (9.6-11.0)
[2021-10-03 07:05] LABS: BASOPHILS % 0.1 % (0.0-2.0); EOSINOPHILS % 0.9 % (0.0-5.0); HEMATOCRIT. 28.3 % (42.0-52.0); LYMPHOCYTES % 16.6 % (20.0-50.0); MEAN CORPUSCULAR HEMOGLOBIN 31.1 pg (28.0-32.0); MEAN PLATELET VOLUME 10.6 fl (7.4-10.4); MONOCYTES % 7.4 % (2.0-8.0); PLATELET 183 x1000/uL (130-400); RED BLOOD CELL COUNT 2.89 mill/uL (4.7-6.1); RED CELL DISTRIBUTION WIDTH 14.7 % (11.6-14.6)
[2021-10-03] MEDS ORDERED: LIDOCAINE HCL 1% 20ML VIAL (Pyxis) INJ ONE (08:02)
[2021-10-03 08:43] LABS: DIGOXIN 1.8 ng/mL (0.9-2.0)
[2021-10-03] MEDS: METOPROLOL TARTRATE 25MG TABLET PEG SCH ×2 (09:00→21:00)
[2021-10-03 09:03] LABS: BG BASE EXCESS 7.9 mmol/L (-2.0-2.0); BG CARBOXYHEMOGLOBIN 0.3 % (0.5-1.5); BG DEOXYHEMOGLOBIN 1.7 % (0.0-5.0); BG FRACTION INSPIRED OXYGEN 60; BG HCO3 ACT 32.8 mmol/L (22.0-26.0); BG METHEMOGLOBIN 0.4 % (0.0-1.5); BG OXYGEN SATURATION 98.3 % (92.0-98.5); BG OXYHEMOGLOBIN 97.6 % (94.0-97.0); BG PCO2 48.1 mmHg (35.0-45.0); BG PH 7.452 (7.350-7.450); BG PO2 119.7 mmHg (75.0-100.0); BG SAMPLE SITE RIGHT RADIAL; BG TOTAL HEMOGLOBIN 9.3 g/dL (12.0-18.0); BG VENT MODE VENT - AC
[2021-10-03] MEDS: PANTOPRAZOLE 40MG DR TABLET PO SCH (09:42)
[2021-10-03] MEDS ORDERED: MORPHINE SULFATE 2 MG/ML CPJ (NOT FOR IM USE) IV NR (16:00)
[2021-10-03] MEDS: ENOXAPARIN 80MG/0.8ML SYR SUBCUT SCH (16:10)
[2021-10-03] MEDS ORDERED: LORAZEPAM 2MG/ML CPJ IV PRN (16:15)
[2021-10-03] MEDS: GUAIFENESIN 200MG/10ML SUGAR FREE UDC PO SCH ×2 (17:32→21:22)
[2021-10-03] MEDS: SODIUM CHLORIDE 0.45% 1,000 ML IV SCH (17:33)
[2021-10-03] MEDS: DILTIAZEM HCL 125 MG in DEXT 5% WATER 100 ML IV PRN (19:23)
[2021-10-03] MEDS ORDERED: NALOXONE HCL 0.4MG/ML VIAL IV PRN (20:15)
[2021-10-03] MEDS: ACETAMINOPHEN 325MG TABLET PO PRN (21:22)
[2021-10-03 22:23] LABS: BG BASE EXCESS 3.6 mmol/L (-2.0-2.0); BG CARBOXYHEMOGLOBIN 0.3 % (0.5-1.5); BG DEOXYHEMOGLOBIN 6.1 % (0.0-5.0); BG FRACTION INSPIRED OXYGEN 60; BG HCO3 ACT 26.2 mmol/L (22.0-26.0); BG METHEMOGLOBIN 0.2 % (0.0-1.5); BG OXYGEN SATURATION 93.9 % (92.0-98.5); BG OXYHEMOGLOBIN 93.4 % (94.0-97.0); BG PCO2 31.1 mmHg (35.0-45.0); BG PH 7.544 (7.350-7.450); BG PO2 72.1 mmHg (75.0-100.0); BG SAMPLE SITE RIGHT RADIAL; BG TOTAL HEMOGLOBIN 7.2 g/dL (12.0-18.0); BG VENT MODE VENT - AC
[2021-10-04] VITALS (98 sets, daily range): BP systolic 84–206; BP diastolic 45–137
[2021-10-04] MEDS: MIDODRINE HCL 5MG TABLET PO SCH ×4 (00:07→17:17)
[2021-10-04] MEDS: IPRATROPIUM BROMIDE (0.02%) 0.5MG/2.5ML NEB HHN SCH ×6 (00:14→20:07)
[2021-10-04] MEDS: ACETYLCYSTEINE 100MG/ML 10% VIAL 4ML INH SCH ×3 (00:15→16:49)
[2021-10-04] MEDS: GUAIFENESIN 200MG/10ML SUGAR FREE UDC PO SCH ×4 (05:48→21:51)
[2021-10-04] MEDS: SODIUM CHLORIDE 0.45% 1,000 ML IV SCH ×2 (05:49→20:13)
[2021-10-04] MEDS: DILTIAZEM HCL 30MG TABLET PEG SCH ×3 (05:49→11:32)
[2021-10-04] MEDS: ACETAMINOPHEN 325MG TABLET PO PRN (06:01)
[2021-10-04] MEDS: PIPERACILLIN/TAZOBACTAM 3.375G in DEXT 5% WATER 50ML IV SCH ×3 (07:16→21:51)
[2021-10-04 07:27] LABS: BASOPHILS % 0.3 % (0.0-2.0); EOSINOPHILS % 1.4 % (0.0-5.0); HEMATOCRIT. 27.8 % (42.0-52.0); LYMPHOCYTES % 21.7 % (20.0-50.0); MEAN CORPUSCULAR HEMOGLOBIN 31.7 pg (28.0-32.0); MEAN CORPUSCULAR VOLUME 97.4 fL (80.0-94.0); MEAN PLATELET VOLUME 10.6 fl (7.4-10.4); MONOCYTES % 9.9 % (2.0-8.0); NEUTROPHILS % 66.7 % (40.0-76.0); PLATELET 180 x1000/uL (130-400); RED BLOOD CELL COUNT 2.85 mill/uL (4.7-6.1); RED CELL DISTRIBUTION WIDTH 14.3 % (11.6-14.6)
[2021-10-04] MEDS ORDERED: DILTIAZEM 125MG/125ML PMX 125 ML IV SCH (07:30)
[2021-10-04 07:51] LABS: PHOSPHORUS 2.8 mg/dL (2.5-4.9)
[2021-10-04] MEDS: METOPROLOL TARTRATE 25MG TABLET PEG SCH ×2 (08:32→21:00)
[2021-10-04] MEDS: PANTOPRAZOLE 40MG DR TABLET PO SCH (08:32)
[2021-10-04] MEDS: LORAZEPAM 2MG/ML CPJ IM PRN (11:23)
[2021-10-04] MEDS: MORPHINE SULFATE 2 MG/ML CPJ (NOT FOR IM USE) IV PRN (11:49)
[2021-10-04] MEDS ORDERED: DIGOXIN 500MCG/2ML AMP IV SCH (12:30)
[2021-10-04] MEDS: HYDRALAZINE 20MG/ML VIAL IV PRN (12:48)
[2021-10-04] MEDS ORDERED: MORPHINE SULFATE 2 MG/ML CPJ (NOT FOR IM USE) IV NR (13:15)
[2021-10-04] MEDS ORDERED: LORAZEPAM 2MG/ML CPJ IV NR (13:15)
[2021-10-04] MEDS ORDERED: MORPHINE SULFATE 4 MG/ML CPJ (NOT FOR IM USE) IV ONE (13:18)
[2021-10-04] MEDS ORDERED: FENTANYL CITRATE/PF 2,500 MCG in SODIUM CHLORIDE 0.9% 200 ML IV PRN (13:30)
[2021-10-04] MEDS ORDERED: PROPOFOL 10MG/ML 100ML 100 ML IV PRN (13:30)
[2021-10-04] MEDS ORDERED: DILTIAZEM HCL 30MG TABLET PO NR (14:30)
[2021-10-04 15:51] LABS: BG BASE EXCESS 5.9 mmol/L (-2.0-2.0); BG CARBOXYHEMOGLOBIN 0.3 % (0.5-1.5); BG DEOXYHEMOGLOBIN 0.4 % (0.0-5.0); BG FRACTION INSPIRED OXYGEN 100; BG HCO3 ACT 30.6 mmol/L (22.0-26.0); BG METHEMOGLOBIN 0.2 % (0.0-1.5); BG OXYGEN SATURATION 99.6 % (92.0-98.5); BG OXYHEMOGLOBIN 99.1 % (94.0-97.0); BG PCO2 45.8 mmHg (35.0-45.0); BG PH 7.443 (7.350-7.450); BG SAMPLE SITE RIGHT RADIAL; BG TOTAL HEMOGLOBIN 8.6 g/dL (12.0-18.0); BG VENT MODE VENT - AC
[2021-10-04] MEDS: ENOXAPARIN 80MG/0.8ML SYR SUBCUT SCH (16:38)
[2021-10-04] MEDS: DILTIAZEM HCL 60MG TABLET PEG SCH (17:18)
[2021-10-05] VITALS (78 sets, daily range): BP systolic 101–146; BP diastolic 50–94
[2021-10-05] MEDS: ACETYLCYSTEINE 100MG/ML 10% VIAL 4ML INH SCH ×3 (00:11→16:13)
[2021-10-05] MEDS: IPRATROPIUM BROMIDE (0.02%) 0.5MG/2.5ML NEB HHN SCH ×6 (00:11→20:51)
[2021-10-05] MEDS: MIDODRINE HCL 5MG TABLET PO SCH ×5 (00:36→23:50)
[2021-10-05] MEDS: DILTIAZEM HCL 60MG TABLET PEG SCH ×5 (00:37→23:49)
[2021-10-05] MEDS: GUAIFENESIN 200MG/10ML SUGAR FREE UDC PO SCH ×4 (04:15→22:13)
[2021-10-05] MEDS: PIPERACILLIN/TAZOBACTAM 3.375G in DEXT 5% WATER 50ML IV SCH ×3 (06:05→22:13)
[2021-10-05 06:12] LABS: BASOPHILS % 0.2 % (0.0-2.0); EOSINOPHILS % 3.6 % (0.0-5.0); HEMATOCRIT. 24.9 % (42.0-52.0); HEMOGLOBIN. 8.3 g/dL (14.0-18.0); MEAN CORPUSCULAR HEMOGLOBIN 32.1 pg (28.0-32.0); MEAN CORPUSCULAR VOLUME 96.1 fL (80.0-94.0); MEAN PLATELET VOLUME 9.3 fl (7.4-10.4); MONOCYTES % 9.3 % (2.0-8.0); NEUTROPHILS % 66.9 % (40.0-76.0); PLATELET 184 x1000/uL (130-400); RED BLOOD CELL COUNT 2.59 mill/uL (4.7-6.1); RED CELL DISTRIBUTION WIDTH 14.4 % (11.6-14.6)
[2021-10-05 06:27] LABS: PHOSPHORUS 3.4 mg/dL (2.5-4.9)
[2021-10-05] MEDS: SODIUM CHLORIDE 0.45% 1,000 ML IV SCH ×2 (08:46→22:28)
[2021-10-05] MEDS: PANTOPRAZOLE 40MG DR TABLET PO SCH (08:46)
[2021-10-05] MEDS: METOPROLOL TARTRATE 25MG TABLET PEG SCH ×2 (08:46→21:19)
[2021-10-05 10:01] LABS: BG BASE EXCESS 5.4 mmol/L (-2.0-2.0); BG CARBOXYHEMOGLOBIN 0.1 % (0.5-1.5); BG DEOXYHEMOGLOBIN 1.8 % (0.0-5.0); BG FRACTION INSPIRED OXYGEN 40; BG HCO3 ACT 30.3 mmol/L (22.0-26.0); BG METHEMOGLOBIN 0.3 % (0.0-1.5); BG OXYGEN SATURATION 98.2 % (92.0-98.5); BG OXYHEMOGLOBIN 97.8 % (94.0-97.0); BG PCO2 46.9 mmHg (35.0-45.0); BG PH 7.428 (7.350-7.450); BG PO2 120.1 mmHg (75.0-100.0); BG SAMPLE SITE RIGHT RADIAL; BG TOTAL HEMOGLOBIN 7.7 g/dL (12.0-18.0); BG VENT MODE VENT - AC
[2021-10-05] MEDS: ENOXAPARIN 80MG/0.8ML SYR SUBCUT SCH (16:23)
[2021-10-05] MEDS ORDERED: ALTEPLASE 2MG/VIAL ITC NR (18:00)
[2021-10-06] VITALS (64 sets, daily range): BP systolic 110–153; BP diastolic 49–100
[2021-10-06] MEDS: ACETYLCYSTEINE 100MG/ML 10% VIAL 4ML INH SCH ×4 (00:59→20:51)
[2021-10-06] MEDS: IPRATROPIUM BROMIDE (0.02%) 0.5MG/2.5ML NEB HHN SCH ×6 (00:59→20:51)
[2021-10-06] MEDS: LORAZEPAM 2MG/ML CPJ IM PRN (01:19)
[2021-10-06] MEDS: GUAIFENESIN 200MG/10ML SUGAR FREE UDC PO SCH ×4 (04:09→21:26)
[2021-10-06] MEDS: PIPERACILLIN/TAZOBACTAM 3.375G in DEXT 5% WATER 50ML IV SCH ×3 (05:13→21:26)
[2021-10-06] MEDS: DILTIAZEM HCL 60MG TABLET PEG SCH ×3 (05:13→18:30)
[2021-10-06] MEDS: MIDODRINE HCL 5MG TABLET PO SCH ×3 (05:14→18:00)
[2021-10-06 07:00] LABS: BASOPHILS % 0.4 % (0.0-2.0); EOSINOPHILS % 3.7 % (0.0-5.0); HEMATOCRIT. 22.4 % (42.0-52.0); HEMOGLOBIN. 7.4 g/dL (14.0-18.0); LYMPHOCYTES % 17.8 % (20.0-50.0); MEAN CORPUSCULAR HEMOGLOBIN 31.8 pg (28.0-32.0); MEAN CORPUSCULAR VOLUME 96.6 fL (80.0-94.0); MEAN PLATELET VOLUME 9.1 fl (7.4-10.4); MONOCYTES % 7.9 % (2.0-8.0); NEUTROPHILS % 70.2 % (40.0-76.0); PLATELET 197 x1000/uL (130-400); RED BLOOD CELL COUNT 2.32 mill/uL (4.7-6.1); RED CELL DISTRIBUTION WIDTH 14.3 % (11.6-14.6)
[2021-10-06 07:16] LABS: PHOSPHORUS 3.2 mg/dL (2.5-4.9)
[2021-10-06] MEDS: PANTOPRAZOLE 40MG DR TABLET PO SCH (07:50)
[2021-10-06] MEDS: METOPROLOL TARTRATE 25MG TABLET PEG SCH ×2 (09:00→21:26)
[2021-10-06] MEDS: SODIUM CHLORIDE 0.45% 1,000 ML IV SCH (13:22)
[2021-10-07] VITALS (38 sets, daily range): BP systolic 112–166; BP diastolic 52–92
[2021-10-07] MEDS: DILTIAZEM HCL 60MG TABLET PEG SCH ×4 (00:09→17:18)
[2021-10-07] MEDS: IPRATROPIUM BROMIDE (0.02%) 0.5MG/2.5ML NEB HHN SCH ×5 (00:41→20:57)
[2021-10-07] MEDS: SODIUM CHLORIDE 0.45% 1,000 ML IV SCH ×2 (01:41→12:02)
[2021-10-07] MEDS: GUAIFENESIN 200MG/10ML SUGAR FREE UDC PO SCH ×4 (04:36→21:49)
[2021-10-07] MEDS: HYDRALAZINE 20MG/ML VIAL IV PRN ×2 (04:37→23:57)
[2021-10-07] MEDS: LORAZEPAM 2MG/ML CPJ IM PRN ×2 (04:51→14:07)
[2021-10-07] MEDS: PIPERACILLIN/TAZOBACTAM 3.375G in DEXT 5% WATER 50ML IV SCH (05:43)
[2021-10-07] MEDS: MIDODRINE HCL 5MG TABLET PO SCH ×4 (05:44→17:18)
[2021-10-07 08:01] LABS: BASOPHILS % 0.2 % (0.0-2.0); EOSINOPHILS % 3.3 % (0.0-5.0); HEMATOCRIT. 23.1 % (42.0-52.0); HEMOGLOBIN. 7.7 g/dL (14.0-18.0); LYMPHOCYTES % 12.1 % (20.0-50.0); MEAN CORPUSCULAR HEMOGLOBIN 32.3 pg (28.0-32.0); MEAN CORPUSCULAR VOLUME 96.8 fL (80.0-94.0); MONOCYTES % 6.8 % (2.0-8.0); NEUTROPHILS % 77.6 % (40.0-76.0); PLATELET 202 x1000/uL (130-400); RED BLOOD CELL COUNT 2.39 mill/uL (4.7-6.1); RED CELL DISTRIBUTION WIDTH 14.4 % (11.6-14.6)
[2021-10-07 08:21] LABS: PHOSPHORUS 2.6 mg/dL (2.5-4.9)
[2021-10-07] MEDS: PANTOPRAZOLE 40MG DR TABLET PO SCH (09:48)
[2021-10-07] MEDS: METOPROLOL TARTRATE 25MG TABLET PEG SCH ×2 (09:49→21:48)
[2021-10-07] MEDS: ACETYLCYSTEINE 100MG/ML 10% VIAL 4ML INH SCH ×2 (09:51→16:20)
[2021-10-07 10:20] LABS: BG BASE EXCESS 2.1 mmol/L (-2.0-2.0); BG CARBOXYHEMOGLOBIN 0.3 % (0.5-1.5); BG DEOXYHEMOGLOBIN 3.4 % (0.0-5.0); BG FRACTION INSPIRED OXYGEN 40; BG HCO3 ACT 26.4 mmol/L (22.0-26.0); BG METHEMOGLOBIN 0.1 % (0.0-1.5); BG OXYGEN SATURATION 96.6 % (92.0-98.5); BG OXYHEMOGLOBIN 96.2 % (94.0-97.0); BG PCO2 39.8 mmHg (35.0-45.0); BG PO2 90.1 mmHg (75.0-100.0); BG SAMPLE SITE RIGHT RADIAL; BG TOTAL HEMOGLOBIN 7.8 g/dL (12.0-18.0); BG VENT MODE VENT - AC
[2021-10-08] VITALS (44 sets, daily range): BP systolic 120–175; BP diastolic 63–107
[2021-10-08] MEDS: ACETYLCYSTEINE 100MG/ML 10% VIAL 4ML INH SCH ×3 (00:32→16:35)
[2021-10-08] MEDS: IPRATROPIUM BROMIDE (0.02%) 0.5MG/2.5ML NEB HHN SCH ×5 (00:32→16:35)
[2021-10-08] MEDS: DILTIAZEM HCL 60MG TABLET PEG SCH ×4 (00:35→17:02)
[2021-10-08] MEDS: MIDODRINE HCL 5MG TABLET PO SCH ×4 (00:36→17:02)
[2021-10-08] MEDS: SODIUM CHLORIDE 0.45% 1,000 ML IV SCH ×2 (03:56→17:03)
[2021-10-08] MEDS: GUAIFENESIN 200MG/10ML SUGAR FREE UDC PO SCH ×3 (04:32→17:02)
[2021-10-08 05:54] LABS: BASOPHILS % 0.2 % (0.0-2.0); EOSINOPHILS % 4.5 % (0.0-5.0); HEMATOCRIT. 26.2 % (42.0-52.0); HEMOGLOBIN. 8.6 g/dL (14.0-18.0); LYMPHOCYTES % 16.7 % (20.0-50.0); MEAN CORPUSCULAR HEMOGLOBIN 32.2 pg (28.0-32.0); MEAN CORPUSCULAR VOLUME 97.7 fL (80.0-94.0); MEAN PLATELET VOLUME 8.7 fl (7.4-10.4); MONOCYTES % 7.1 % (2.0-8.0); NEUTROPHILS % 71.5 % (40.0-76.0); PLATELET 240 x1000/uL (130-400); RED BLOOD CELL COUNT 2.68 mill/uL (4.7-6.1); RED CELL DISTRIBUTION WIDTH 14.2 % (11.6-14.6)
[2021-10-08 06:07] LABS: PHOSPHORUS 2.3 mg/dL (2.5-4.9)
[2021-10-08] MEDS: PANTOPRAZOLE 40MG DR TABLET PO SCH (08:02)
[2021-10-08] MEDS: METOPROLOL TARTRATE 25MG TABLET PEG SCH (08:02)
[2021-10-08] MEDS: MORPHINE SULFATE 2 MG/ML CPJ (NOT FOR IM USE) IV PRN (09:43)
[2021-10-08] MEDS ORDERED: IRON SUCROSE COMPLEX 100 MG/5 ML ML IV SCH (14:00)
[2021-10-08] MEDS ORDERED: POTASSIUM PHOS,M-BASIC-D-BASIC 15 MMOL in DEXT 5% WATER 245 ML IV NR (14:30)
== END 2021-10-08 21:00 | DRG 870 ==
LOC: ER 17:55 → MICUSO 20:46 → EDBEDREQ 20:54 → EDBEDREQTM 20:54 → EDBEDREQ 20:56 → 5EST 10-02 11:26 → CVICU 10-02 17:34
PROVIDERS: ADMIT Internal Medicine; ATTEND Internal Medicine
PROC: 5A1955Z Respiratory Ventilation, Greater than 96 Consecutive Hours (ICD-10-PCS; principal; 2021-10-02)
PROC: 02HV33Z Insertion of Infusion Device into Superior Vena Cava, Percutaneous Approach (ICD-10-PCS; 2021-10-03)
PROC: B548ZZA Ultrasonography of Superior Vena Cava, Guidance (ICD-10-PCS; 2021-10-03)
DX: A41.9 Sepsis, unspecified organism (principal); G93.41 Metabolic encephalopathy; E43 Unspecified severe protein-calorie malnutrition; J96.21 Acute and chronic respiratory failure with hypoxia; N17.0 Acute kidney failure with tubular necrosis; J18.9 Pneumonia, unspecified organism; R65.21 Severe sepsis with septic shock; I50.42 Chronic combined systolic (congestive) and diastolic (congestive) heart failure; J44.0 Chronic obstructive pulmonary disease with (acute) lower respiratory infection; E87.3 Alkalosis; I13.0 Hypertensive heart and chronic kidney disease with heart failure and stage 1 through stage 4 chronic kidney disease, or unspecified chronic kidney disease; R13.10 Dysphagia, unspecified; D53.9 Nutritional anemia, unspecified; I48.91 Unspecified atrial fibrillation; F01.50 Vascular dementia, unspecified severity, without behavioral disturbance, psychotic disturbance, mood disturbance, and anxiety; E78.5 Hyperlipidemia, unspecified; Z20.822 Contact with and (suspected) exposure to COVID-19; L89.156 Pressure-induced deep tissue damage of sacral region; R33.9 Retention of urine, unspecified; N18.2 Chronic kidney disease, stage 2 (mild); Z86.73 Personal history of transient ischemic attack (TIA), and cerebral infarction without residual deficits; Z93.1 Gastrostomy status; Z88.5 Allergy status to narcotic agent; Z91.013 Allergy to seafood; Z79.01 Long term (current) use of anticoagulants; Z79.899 Other long term (current) drug therapy; Z79.84 Long term (current) use of oral hypoglycemic drugs; Z93.0 Tracheostomy status; Z68.26 Body mass index [BMI] 26.0-26.9, adult; Z82.49 Family history of ischemic heart disease and other diseases of the circulatory system
CPT/HCPCS: 36415; 36600; 71045; 71250; 76770; 76937; 80048; 80053; 80162; 81003; 82040; 82375; 82550; 82553; 82805; 82962; 83605; 83735; 83880; 84100; 84134; 84145; 84443; 84478; 84484; 85025; 87070; 87102; 87426; 93005; 93306; 94002; 94003; 94640; 99285; C1725; J0360; J1160; J1650; J2060; J2270; J2370; J2405; J2543; J2704; J2997; J3010; J3370; J3490; J7040; J7050; J7060; J7070; J7608; A4315

== ENCOUNTER 2023-08-21 13:16 | Emergency (ER) | payer MEDICARE, MEDICAID ==
[~2023-08-21] VITALS: Ht 167.6 cm; Wt 75.0 kg
[2023-08-21 13:20] VITALS: O2SAT 100
[2023-08-21] MEDS ORDERED: DIATR MEGLU/DIATRIZOATE SOLN 30ML PO ONE (13:45)
[2023-08-21] MEDS ORDERED: DIATR MEGLU/DIATRIZOATE SOLN 30ML ONE (14:30)
[2023-08-21 14:51] VITALS: BP 155/84; PULSE 73; RESP 24; TEMP 98
== END 2023-08-21 14:55 ==
LOC: ER 13:16
DX: K94.23 Gastrostomy malfunction (principal); I11.0 Hypertensive heart disease with heart failure; I50.9 Heart failure, unspecified; K21.9 Gastro-esophageal reflux disease without esophagitis; J44.9 Chronic obstructive pulmonary disease, unspecified; D64.9 Anemia, unspecified; Z88.2 Allergy status to sulfonamides; Z91.013 Allergy to seafood
CPT/HCPCS: 99284; 43762; 74018; Q9963

== ENCOUNTER 2023-09-05 05:55 | Inpatient (IN) | payer MEDICARE, MEDICAID ==
[2023-09-05] VITALS (12 sets, daily range): BP systolic 113–133; BP diastolic 72–91; PULSE 71–136; RESP 24–38; TEMP 98.7
[~2023-09-05] VITALS: Ht 177.8 cm; Wt 78.0 kg
[2023-09-05 07:44] LABS: HEMOGLOBIN. 10.5 g/dL (14.0-18.0); MEAN CORPUSCULAR HEMOGLOBIN 31.1 pg (28.0-32.0); MEAN CORPUSCULAR HGB CONC 31.8 g/dL (31.0-37.0); MEAN PLATELET VOLUME 8.8 fl (7.4-10.4); PLATELET 247 x1000/uL (130-400); RED BLOOD CELL COUNT 3.36 mill/uL (4.7-6.1); RED CELL DISTRIBUTION WIDTH 15.2 % (11.6-14.6); WHITE BLOOD COUNT 9.4 x1000/uL (4.5-11.0)
[2023-09-05 07:52] LABS: DIFFERENTIAL COMMENT 1
[2023-09-05 07:54] LABS: INR 1.1; PROTHROMBIN TIME 11.4 sec (9.6-11.0)
[2023-09-05 08:07] LABS: ALANINE AMINOTRANSFERASE 13 IU/L (10-49); ALBUMIN 3.8 g/dL (3.2-4.8); ASPARTATE AMINOTRANSFERASE 17 IU/L (<34); BILIRUBIN TOTAL 0.3 mg/dL (0.1-1.0); CALCIUM 9.3 mg/dL (8.7-10.4); CARBON DIOXIDE 25 mEq/L (21-32); CHLORIDE 109 mEq/L (98-107); CREATININE 1.6 mg/dL (0.6-1.3); GLUCOSE 107 mg/dL (70-105); POTASSIUM 3.8 mEq/L (3.5-5.1); PROTEIN TOTAL 7.8 g/dL (6.0-8.3); SODIUM 142 mEq/L (136-145); TROPONIN I HIGH SENSITIVITY 8 ng/L (3.0-53); UREA NITROGEN BLOOD 50 mg/dL (9-23)
[2023-09-05 09:03] LABS: PLATELET ESTIMATE NORMAL
[2023-09-05] MEDS ORDERED: VANCOMYCIN 1G PREMIX 200 ML IV STA (09:17)
[2023-09-05] MEDS ORDERED: CEFEPIME 1,000 MG in DEXTROSE 5% WATER 50 ML IV STA (09:17)
[2023-09-05 10:32] LABS: CLARITY URINE CLOUDY (CLEAR); COLOR URINE YELLOW (YELLOW); GLUCOSE URINE NEGATIVE (NEGATIVE); KETONES URINE NEGATIVE (NEGATIVE); LEUKOCYTE ESTERASE URINE NEGATIVE (NEGATIVE); NITRITE URINE NEGATIVE (NEGATIVE); OCCULT BLOOD URINE 1+ (NEGATIVE); PROTEIN URINE 3+ (NEGATIVE); SPECIFIC GRAVITY URINE 1.014 (1.005-1.030); UROBILINOGEN URINE 0.2 E.U./dL (0.2-1.0)
[2023-09-05 11:15] LABS: BACTERIA URINE 1+; SQUAMOUS EPITHELIAL CELL URINE RARE /lpf (RARE/1+); YEAST URINE NONE SEEN
[2023-09-05 12:47] LABS: TROPONIN I HIGH SENSITIVITY 8 ng/L (3.0-53)
[2023-09-05 14:49] LABS: BG BASE EXCESS -0.8 mmol/L (-2.0-2.0); BG CARBOXYHEMOGLOBIN 0.3 % (0.5-1.5); BG DEOXYHEMOGLOBIN 2.5 % (0.0-5.0); BG FRACTION INSPIRED OXYGEN 35; BG HCO3 ACT 21.7 mmol/L (22.0-26.0); BG METHEMOGLOBIN 0.2 % (0.0-1.5); BG OXYGEN SATURATION 97.5 % (92.0-98.5); BG PCO2 29.6 mmHg (35.0-45.0); BG PH 7.484 (7.350-7.450); BG PO2 93.5 mmHg (75.0-100.0); BG SAMPLE SITE RIGHT RADIAL; BG TOTAL HEMOGLOBIN 11.8 g/dL (12.0-18.0); BG VENT MODE VENT - AC
[2023-09-05] MEDS ORDERED: IPRATROPIUM/ALBUTEROL 0.5-3(2.5)MG/3ML NEB HHN PRN ×2 (15:00→19:15)
[2023-09-05] MEDS ORDERED: ONDANSETRON HCL 4MG/2ML INJ IV PRN (15:00)
[2023-09-05] MEDS ORDERED: ACETAMINOPHEN 650MG/20.3ML UDC GT PRN (15:00)
[2023-09-05] MEDS ORDERED: CEFEPIME 2,000 MG in DEXT 5% WATER 100 ML IV SCH (19:15)
[2023-09-06] VITALS (30 sets, daily range): BP systolic 93–167; BP diastolic 59–105; PULSE 60–107; RESP 20–28; TEMP 97.2–98.6
[2023-09-06] MEDS: CEFEPIME 1,000 MG in DEXTROSE 5% WATER 50 ML IV SCH ×3 (00:44→20:46)
[2023-09-06 07:43] LABS: BASOPHILS % 0.3 % (0.0-2.0); EOSINOPHILS % 4.7 % (0.0-5.0); HEMATOCRIT. 28.2 % (42.0-52.0); HEMOGLOBIN. 9.6 g/dL (14.0-18.0); LYMPHOCYTES % 14.3 % (20.0-50.0); MEAN CORPUSCULAR HEMOGLOBIN 32.8 pg (28.0-32.0); MEAN CORPUSCULAR HGB CONC 33.9 g/dL (31.0-37.0); MEAN CORPUSCULAR VOLUME 96.6 fL (80.0-94.0); MEAN PLATELET VOLUME 9.1 fl (7.4-10.4); MONOCYTES % 11.9 % (2.0-8.0); NEUTROPHILS % 68.8 % (40.0-76.0); PLATELET 226 x1000/uL (130-400); RED BLOOD CELL COUNT 2.92 mill/uL (4.7-6.1); RED CELL DISTRIBUTION WIDTH 15.2 % (11.6-14.6)
[2023-09-06 07:50] LABS: CALCIUM 9.1 mg/dL (8.7-10.4); CREATININE 1.7 mg/dL (0.6-1.3); POTASSIUM 3.6 mEq/L (3.5-5.1)
[2023-09-06] MEDS: IPRATROPIUM/ALBUTEROL 0.5-3(2.5)MG/3ML NEB HHN SCH ×2 (09:47→14:45)
[2023-09-06] MEDS: PANTOPRAZOLE SODIUM 40 MG/VIAL IV SCH (14:20)
[2023-09-06] MEDS: ENOXAPARIN 30MG/0.3ML SYR SUBCUT SCH (14:22)
[2023-09-06] MEDS ORDERED: BISA10SU62 RC (16:58)
[2023-09-06] MEDS ORDERED: AMLO5TAB4 GT (16:58)
[2023-09-06] MEDS ORDERED: METO-396 GT (16:58)
[2023-09-06] MEDS ORDERED: FAMO-135 GT (16:58)
[2023-09-06] MEDS ORDERED: ENOX40SY27 SQ (16:58)
[2023-09-06] MEDS ORDERED: CLON0.1T GT (16:58)
[2023-09-06] MEDS ORDERED: MULT-1116 GT (16:58)
[2023-09-06] MEDS ORDERED: HYDR-4001 GT (16:58)
[2023-09-06] MEDS ORDERED: MOM GT (16:58)
[2023-09-06] MEDS ORDERED: ATROV3 NS (16:58)
[2023-09-06] MEDS ORDERED: LORA-250 GT (16:58)
[2023-09-06] MEDS ORDERED: TAMS-11 GT (16:58)
[2023-09-06] MEDS ORDERED: TOPUD GT (16:58)
[2023-09-06] MEDS ORDERED: [UNRECOGNIZED DRUG - CODE] GT (16:58)
[2023-09-06] MEDS ORDERED: ONDA4TAB50 GT (16:58)
[2023-09-06] MEDS ORDERED: DOCU-138 GT (16:58)
[2023-09-06] MEDS ORDERED: ALBU6.7H15 INH (16:58)
[2023-09-06] MEDS: ACETAMINOPHEN 650MG/20.3ML UDC GT PRN (20:47)
[2023-09-06] MEDS: CLONIDINE 0.1MG TABLET PO PRN (20:48)
[2023-09-07] VITALS (18 sets, daily range): BP systolic 106–169; BP diastolic 67–91; PULSE 61–112; RESP 20–27; TEMP 97–98.3
[2023-09-07] MEDS: IPRATROPIUM/ALBUTEROL 0.5-3(2.5)MG/3ML NEB HHN SCH ×3 (02:50→20:02)
[2023-09-07 07:47] LABS: BASOPHILS % 0.2 % (0.0-2.0); EOSINOPHILS % 5.3 % (0.0-5.0); HEMATOCRIT. 29.7 % (42.0-52.0); HEMOGLOBIN. 9.7 g/dL (14.0-18.0); LYMPHOCYTES % 15.5 % (20.0-50.0); MEAN CORPUSCULAR HEMOGLOBIN 31.8 pg (28.0-32.0); MEAN CORPUSCULAR HGB CONC 32.6 g/dL (31.0-37.0); MEAN CORPUSCULAR VOLUME 97.7 fL (80.0-94.0); MONOCYTES % 12.7 % (2.0-8.0); NEUTROPHILS % 66.3 % (40.0-76.0); PLATELET 208 x1000/uL (130-400); RED BLOOD CELL COUNT 3.04 mill/uL (4.7-6.1); RED CELL DISTRIBUTION WIDTH 15.4 % (11.6-14.6); WHITE BLOOD COUNT 7.1 x1000/uL (4.5-11.0)
[2023-09-07 08:20] LABS: CALCIUM 8.8 mg/dL (8.7-10.4); CREATININE 1.6 mg/dL (0.6-1.3); POTASSIUM 3.7 mEq/L (3.5-5.1)
[2023-09-07] MEDS: CEFEPIME 1,000 MG in DEXTROSE 5% WATER 50 ML IV SCH (08:46)
[2023-09-07] MEDS: CLONIDINE 0.1MG TABLET PO PRN (08:46)
[2023-09-07] MEDS: PANTOPRAZOLE SODIUM 40 MG/VIAL IV SCH (08:46)
[2023-09-07] MEDS ORDERED: LIDOCAINE HCL 1% 10 MG/ML 10ML VIAL ONE (10:39)
[2023-09-07] MEDS: ENOXAPARIN 30MG/0.3ML SYR SUBCUT SCH (14:26)
[2023-09-07] MEDS: CEFEPIME 2,000 MG in DEXT 5% WATER 100 ML IV SCH (16:28)
[2023-09-07] MEDS: MULTIVITAMINS,THER W-MINERALS TABLET GT SCH (21:00)
[2023-09-08] VITALS (17 sets, daily range): BP systolic 106–169; BP diastolic 62–93; PULSE 65–104; RESP 19–24; TEMP 97.4–98.5; O2SAT 100
[2023-09-08] MEDS: IPRATROPIUM/ALBUTEROL 0.5-3(2.5)MG/3ML NEB HHN SCH ×3 (00:11→13:05)
[2023-09-08] MEDS: CEFEPIME 2,000 MG in DEXT 5% WATER 100 ML IV SCH ×2 (05:56→17:13)
[2023-09-08 07:52] LABS: BASOPHILS % 0.3 % (0.0-2.0); EOSINOPHILS % 4.3 % (0.0-5.0); HEMATOCRIT. 32.2 % (42.0-52.0); HEMOGLOBIN. 10.6 g/dL (14.0-18.0); MEAN CORPUSCULAR HEMOGLOBIN 31.9 pg (28.0-32.0); MEAN CORPUSCULAR VOLUME 96.9 fL (80.0-94.0); MEAN PLATELET VOLUME 8.8 fl (7.4-10.4); MONOCYTES % 12.3 % (2.0-8.0); NEUTROPHILS % 67.1 % (40.0-76.0); PLATELET 216 x1000/uL (130-400); RED BLOOD CELL COUNT 3.33 mill/uL (4.7-6.1); RED CELL DISTRIBUTION WIDTH 15.3 % (11.6-14.6); WHITE BLOOD COUNT 6.2 x1000/uL (4.5-11.0)
[2023-09-08 08:10] LABS: CARBON DIOXIDE 27 mEq/L (21-32); CHLORIDE 112 mEq/L (98-107); CREATININE 1.4 mg/dL (0.6-1.3); GLUCOSE 120 mg/dL (70-105); POTASSIUM 4.3 mEq/L (3.5-5.1); SODIUM 146 mEq/L (136-145); UREA NITROGEN BLOOD 38 mg/dL (9-23)
[2023-09-08] MEDS: MULTIVITAMINS,THER W-MINERALS TABLET GT SCH (08:46)
[2023-09-08] MEDS: PANTOPRAZOLE SODIUM 40 MG/VIAL IV SCH (08:46)
[2023-09-08] MEDS ORDERED: POLYETHYLENE GLYCOL 3350 (17GM) 1 DOSE PACK PO SCH (12:00)
[2023-09-08] MEDS: ENOXAPARIN 30MG/0.3ML SYR SUBCUT SCH (12:22)
[2023-09-08] MEDS: ACETAMINOPHEN 650MG/20.3ML UDC GT PRN (16:44)
[2023-09-08] MEDS: CLONIDINE 0.1MG TABLET PO PRN (16:45)
== END 2023-09-08 19:08 | DRG 208 ==
LOC: ER 06:21 → MICUSO 09:47 → EDBEDREQTM 09:51 → EDBEDREQ 09:51 → EDBEDREQSVC 13:56 → 5EST 17:15
PROVIDERS: ADMIT Family Medicine Adult Medicine; ATTEND Family Medicine Adult Medicine
PROC: 5A1945Z Respiratory Ventilation, 24-96 Consecutive Hours (ICD-10-PCS; principal; 2023-09-05)
PROC: 02HV33Z Insertion of Infusion Device into Superior Vena Cava, Percutaneous Approach (ICD-10-PCS; 2023-09-07)
PROC: B5181ZA Fluoroscopy of Superior Vena Cava using Low Osmolar Contrast, Guidance (ICD-10-PCS; 2023-09-07)
PROC: B548ZZA Ultrasonography of Superior Vena Cava, Guidance (ICD-10-PCS; 2023-09-07)
DX: J96.21 Acute and chronic respiratory failure with hypoxia (principal); J18.9 Pneumonia, unspecified organism; J44.0 Chronic obstructive pulmonary disease with (acute) lower respiratory infection; I13.0 Hypertensive heart and chronic kidney disease with heart failure and stage 1 through stage 4 chronic kidney disease, or unspecified chronic kidney disease; I50.22 Chronic systolic (congestive) heart failure; I69.354 Hemiplegia and hemiparesis following cerebral infarction affecting left non-dominant side; Z99.11 Dependence on respirator [ventilator] status; J96.22 Acute and chronic respiratory failure with hypercapnia; I48.91 Unspecified atrial fibrillation; N18.9 Chronic kidney disease, unspecified; Z20.822 Contact with and (suspected) exposure to COVID-19; K21.9 Gastro-esophageal reflux disease without esophagitis; D53.9 Nutritional anemia, unspecified; R13.10 Dysphagia, unspecified; Z79.899 Other long term (current) drug therapy; Z88.5 Allergy status to narcotic agent; Z91.013 Allergy to seafood; Z93.0 Tracheostomy status; Z93.1 Gastrostomy status
CPT/HCPCS: 36415; 36573; 36600; 71045; 80048; 80053; 81003; 82375; 82805; 82962; 83605; 83880; 84145; 84484; 85025; 86850; 86900; 87070; 87077; 87186; 87426; 87804; 93005; 93970; 94002; 94003; 94640; 99285; A6261; C1725; C9113; C9803; J0692; J1650; J3370; J3490; J7060

== ENCOUNTER 2024-02-20 08:33 | Emergency (ER) | payer MEDICARE, MEDICAID ==
[~2024-02-20] VITALS: Ht 182.9 cm; Wt 91.0 kg
[~2024-02-20 08:33] MED LIST changes: +ALBU6.7H15 INH; -ALBU6.7H9 INH; +AMLO5TAB4 GT; -APIX5TAB PO; -ASPI-1497 MT; +ATROV3 NS; +BISA10SU62 RC; -CALC-3 MT; -CARV25TA47 MT; +CLON0.1T GT; +DOCU-138 GT; +ENOX40SY27 SQ; +FAMO-135 GT; -FURO40TA5 MT; +HYDR-4001 GT; -HYDR-4135 MT; -ISOS5TAB4 MT; +LORA-250 GT; +METO-396 GT; +MOM GT; -MOME13HF INH; -MONT10TA21 PO; +MULT-1116 GT; +ONDA4TAB50 GT; -PANT40TA51 PO; +TAMS-11 GT; -TIOT18CA3 INH; +TOPUD GT; +[UNRECOGNIZED DRUG - CODE] GT
[2024-02-20 08:35] VITALS: BP 74/54; O2SAT 85
[2024-02-20 08:47] VITALS: PULSE 68; RESP 15
== END 2024-02-20 08:57 ==
LOC: ER 08:33
DX: I46.9 Cardiac arrest, cause unspecified (principal); I11.0 Hypertensive heart disease with heart failure; I50.9 Heart failure, unspecified; I48.91 Unspecified atrial fibrillation; D64.9 Anemia, unspecified; J44.9 Chronic obstructive pulmonary disease, unspecified; K21.9 Gastro-esophageal reflux disease without esophagitis; Z86.73 Personal history of transient ischemic attack (TIA), and cerebral infarction without residual deficits; Z79.899 Other long term (current) drug therapy
CPT/HCPCS: 82962; 92950; 94002; 99291